=== PATIENT | female | born 1995 | race Hispanic/Latino ===

== ENCOUNTER → 2018-08-14 12:22 | Outpatient (CLI) | payer OTHER, SELFPAY ==
[2018-08-14 13:31] LABS: Add Manual Diff / Slide Review NO; Basophils Percent Auto 0.5 % (0-2); Eosinophils Percent Auto 0.7 % (2-4); Hematocrit 41.9 % (36-46); Hemoglobin 13.9 g/dL (12.0-16.0); Lymphocytes Percent Auto 17.2 % (25-40); Mean Corpuscular HGB Conc 33.3 % (30-36); Mean Corpuscular Hemoglobin 30.1 PG (26-34); Mean Corpuscular Volume 90.5 fL (80-100); Monocytes Percent Auto 5.6 % (3-14); Neutrophils Absolute Auto 10000 /uL (3000-5900); Platelet Count 285 X10^3/uL (150-400); Red Blood Cell Count 4.63 X10^6/uL (4.0-5.2); Red Cell Distribution Width 13.3 % (11.6-14.8); White Blood Cell Count 13.1 X10^3/uL (4.5-11.0)
== END ==
PROVIDERS: PCP Family Medicine; Visit Provider Family Medicine
DX: R53.83 Other fatigue (principal)
CPT/HCPCS: 36415; 84443; 85025

== ENCOUNTER → 2020-02-28 06:58 | Outpatient (CLI) | payer OTHER, SELFPAY ==
--- NOTE | 2020-02-28 06:59 | DI.US.S_ITS ---
PROCEDURE: US PELVIC COMPLETE INDICATIONS: RLQ ABDOMINAL/ ADNEXAL PAIN TECHNIQUE: Real-time scanning was performed of the pelvic organs, with image documentation. Additional endovaginal scanning was necessary due to incomplete visualization of the adnexal and endometrial structures by transabdominal scanning. COMPARISON: [facility], US, PELVIC COMPLETE, 04/19/2017, 15:53. FINDINGS: Transabdominal scanning: Limited scanning through the kidneys shows no hydronephrosis. No pathologic free abdominal or pelvic fluid. Endovaginal scanning: Uterus: Uterus is normal in size at 4.8 x 4.8 x 7.4 cm, retroverted. The endometrium measures slightly over 1.5 cm in combined thickness, at the threshold for hyperplasia at this time. There is an associated band of increased vascularity along the endometrial lining margin centrally, without polyp or other suspicious mass. Ovaries: 3.1 x 2.4 x 3.9 cm on the right with a 1.9 x 1.6 x 1.6 cm simple cyst. Left ovary measures 2.5 x 1.2 x 2.8 cm. Intact arterial and venous flow is present. IMPRESSION: The endometrial lining thickness is at the threshold for diagnosis of endometrial hyperplasia. No endometrial mass or abnormal fluid collection is seen but there is associated increased vascularity. The ovaries bilaterally show no evidence of torsion, either acutely or recently. Note is made of the 1.9 cm maximal dimension simple appearing right ovarian cyst. No abnormal free fluid found. Dictated by: Víctor Barrett M.D. on 02/28/2020 at 9:03 Approved by: Víctor Barrett M.D. on 02/28/2020 at 9:23
== END ==
PROVIDERS: PCP Family Medicine; Referring Provider Family Medicine; Visit Provider Family Medicine
DX: R10.31 Right lower quadrant pain (principal); N83.291 Other ovarian cyst, right side
CPT/HCPCS: 76830; 76856

== ENCOUNTER → 2020-05-20 11:05 | Outpatient (CLI) | payer OTHER, SELFPAY ==
[2020-05-20 11:45] LABS: Add Manual Diff / Slide Review NO; Basophils Absolute Auto 100 /uL (0-100); Basophils Percent Auto 0.7 % (0-2); Eosinophils Absolute Auto 0 /uL (0-450); Eosinophils Percent Auto 0.5 % (2-4); Hematocrit 39.7 % (36-46); Hemoglobin 13.5 g/dL (12.0-16.0); Lymphocytes Absolute Auto 2000 /uL (1100-4500); Lymphocytes Percent Auto 21.9 % (25-40); Mean Corpuscular Hemoglobin 30.9 PG (26-34); Mean Corpuscular Volume 90.9 fL (80-100); Monocytes Absolute Auto 400 /uL (0-900); Monocytes Percent Auto 4.4 % (3-14); Neutrophils Absolute Auto 6700 /uL (1500-7000); Neutrophils Percent Auto 72.5 % (50-75); Platelet Count 283 X10^3/uL (150-400); Red Blood Cell Count 4.37 X10^6/uL (4.0-5.2); Red Cell Distribution Width 12.7 % (11.6-14.8); White Blood Cell Count 9.2 X10^3/uL (4.5-11.0)
[2020-05-20 12:18] LABS: Alanine Aminotransferase 27 IU/L (<35); Albumin 4.5 g/dL (3.5-5.0); Albumin Globulin Ratio 1.4 (1.0-2.8); Alkaline Phosphatase 89 U/L (38-126); Aspartate Aminotransferase 18 IU/L (14-36); BUN Creatinine Ratio 20.3 (6-22); Bilirubin Total 0.7 mg/dL (0.2-1.3); Blood Urea Nitrogen 15 mg/dL (7-17); Carbon Dioxide 26 mmol/L (22-32); Chloride 104 mmol/L (98-107); Estimated Glomerular Filt Rate > 60.0 mL/min (>60); Globulin 3.2 g/dL (1.7-4.1); Glucose 89 mg/dL (70-100); HEMOLYSIS < 15 (0-50); Lipase 66 U/L (23-300); Potassium 4.5 mmol/L (3.4-5.1); Sodium 139 mmol/L (137-145); Total Protein 7.7 g/dL (6.3-8.2)
== END ==
PROVIDERS: PCP Family Medicine; Referring Provider Family Medicine; Visit Provider Family Medicine
DX: R10.9 Unspecified abdominal pain (principal)
CPT/HCPCS: 36415; 80053; 83690; 85025

== ENCOUNTER → 2020-05-26 09:00 | Outpatient (CLI) | payer OTHER, SELFPAY ==
--- NOTE | 2020-05-26 09:25 | DI.CT.S_ITS ---
PROCEDURE: CT ABDOMEN PELVIS W CON INDICATIONS: abdominal pain with nausea, blood stool, hx colitis TECHNIQUE: After the administration of oral and intravenous contrast, 5 mm thick sections acquired from the diaphragms to the symphysis. 5 mm thick coronal and sagittal reformats were performed. For radiation dose reduction, the following was used: automated exposure control, adjustment of mA and/or kV according to patient size. COMPARISON: [facility], CT, ABD/PELVIS W/CON (PNL), 04/16/2012, 4:38. [facility], CT, ABD/PELVIS W/CON (PNL), 10/18/2014, 13:55. FINDINGS: Image quality: Excellent. ABDOMEN: Lung bases: Lung bases are clear. Heart size is normal. Solid organs: Liver is normal in size and enhancement. Gallbladder is normal. Biliary system is non-dilated. Pancreas enhances normally. Spleen is normal in size and enhancement. No adrenal nodules. Kidneys are normal in size and enhancement, without hydronephrosis. Peritoneum and bowel: Stomach is distended. Gastric antrum may be thickened. There is mild segmental wall thickening in several loops of jejunum. Small bowel and colon loops are normal in caliber. No free fluid or air. Nodes and vessels: No retroperitoneal or mesenteric adenopathy. Aorta and inferior vena cava are normal in caliber. Miscellaneous: No ventral hernias. PELVIS: Genitourinary: Bladder wall thickness is normal. Uterus is unremarkable. There is a 1.5 cm left ovarian cyst, likely a dominant follicle. No free fluid in pelvis Miscellaneous: No inguinal hernias or adenopathy. Bones: No suspicious bony lesions. No vertebral body compression fractures. IMPRESSION: 1. Segmental thickening of jejunal loops. Differential diagnosis include inflammatory bowel disease or infectious etiology. 2. No findings to suggest colitis. 3. Distended stomach. There may be gastric antral thickening although the appearance could be caused by peristalsis. A follow-up upper GI series may be considered if clinical symptoms persist. 4. A 1.5 cm left ovarian cyst. Dictated by: Jesse Forbes M.D. on 05/26/2020 at 13:23 Approved by: Jesse Forbes M.D. on 05/26/2020 at 16:46
== END ==
PROVIDERS: PCP Family Medicine; Referring Provider Family Medicine; Visit Provider Family Medicine
DX: R10.9 Unspecified abdominal pain (principal); R11.0 Nausea; K92.1 Melena; K31.89 Other diseases of stomach and duodenum; N83.202 Unspecified ovarian cyst, left side
CPT/HCPCS: 74177; Q9967

== ENCOUNTER → 2021-12-24 11:51 | Outpatient (CLI) | payer BC, SELFPAY ==
[2021-12-24 13:00] LABS: Add Manual Diff / Slide Review NO; Basophils Absolute Auto 100 /uL (0-100); Basophils Percent Auto 0.5 % (0-2); Eosinophils Absolute Auto 100 /uL (0-450); Eosinophils Percent Auto 0.9 % (2-4); Hematocrit 41.9 % (36-46); Hemoglobin 14.3 g/dL (12.0-16.0); Lymphocytes Absolute Auto 3300 /uL (1100-4500); Lymphocytes Percent Auto 25.1 % (25-40); Mean Corpuscular HGB Conc 34.2 % (30-36); Mean Corpuscular Hemoglobin 30.8 PG (26-34); Mean Corpuscular Volume 90.2 fL (80-100); Monocytes Absolute Auto 800 /uL (0-900); Monocytes Percent Auto 5.9 % (3-14); Neutrophils Absolute Auto 8900 /uL (1500-7000); Neutrophils Percent Auto 67.6 % (50-75); Platelet Count 264 X10^3/uL (150-400); Red Blood Cell Count 4.65 X10^6/uL (4.0-5.2); Red Cell Distribution Width 13.1 % (11.6-14.8); White Blood Cell Count 13.1 X10^3/uL (4.5-11.0)
[2021-12-24 13:09] LABS: BUN Creatinine Ratio 20.3 (6-22); Blood Urea Nitrogen 15 mg/dL (7-17); Calcium 8.6 mg/dL (8.4-10.2); Carbon Dioxide 27 mmol/L (22-32); Chloride 106 mmol/L (98-107); Estimated Glomerular Filt Rate > 60.0 mL/min (>60); Glucose 97 mg/dL (70-100); HEMOLYSIS < 15 (0-50); Potassium 4.1 mmol/L (3.4-5.1); Sodium 140 mmol/L (137-145)
[2021-12-24 14:48] LABS: TSH w/ Reflex to FT4 0.73 uIU/mL (0.47-4.68)
== END ==
PROVIDERS: PCP Family Medicine; Referring Provider Family Medicine; Visit Provider Family Medicine
DX: R63.5 Abnormal weight gain (principal); R60.9 Edema, unspecified
CPT/HCPCS: 36415; 80048; 84443; 85025

== ENCOUNTER → 2022-10-05 13:11 | Outpatient (CLI) | payer BC, SELFPAY ==
[2022-10-05 14:31] LABS: Prolactin 24.5 ng/mL (3.0-18.6)
[2022-10-05 14:45] LABS: Thyroid Stimulating Hormone 0.672 uIU/mL (0.47-4.68)
[2022-10-05 19:28] LABS: Follicle Stimulating Hormone 1.15 mIU/mL; Luteinizing Hormone 4.25 mIU/mL
[2022-10-13 08:47] LABS: Percent Free Testosterone 2.52 % (0.50-2.80); Testosterone Free 0.63 ng/dL (0.10-0.85); Testosterone Total 25.1 ng/dL (10.0-55.0)
== END ==
PROVIDERS: PCP Family Medicine; Referring Provider Family Medicine; Visit Provider Family Medicine
DX: N97.9 Female infertility, unspecified (principal)
CPT/HCPCS: 36415; 83001; 83002; 84146; 84402; 84403; 84443

== ENCOUNTER → 2022-10-21 10:56 | Outpatient (CLI) | payer OTHER, MEDICAID, SELFPAY ==
[2022-10-21 13:27] LABS: Prolactin 9.8 ng/mL (3.0-18.6)
== END ==
PROVIDERS: PCP Family Medicine; Referring Provider Family Medicine; Visit Provider Family Medicine
DX: R79.89 Other specified abnormal findings of blood chemistry (principal)
CPT/HCPCS: 36415; 84146

== ENCOUNTER → 2023-01-09 11:15 | Outpatient (CLI) | payer OTHER, MEDICAID, SELFPAY ==
[2023-01-09 19:06] LABS: Prolactin 14.7 ng/mL (3.0-18.6)
== END ==
PROVIDERS: PCP Family Medicine; Referring Provider Family Medicine; Visit Provider Family Medicine
DX: R79.89 Other specified abnormal findings of blood chemistry (principal)
CPT/HCPCS: 36415; 84146

== ENCOUNTER → 2023-02-09 12:20 | Outpatient (CLI) | payer OTHER, MEDICAID, SELFPAY | PROVIDERS: PCP Family Medicine; Visit Provider Student in an Organized Health Care Education/Training Program | DX: R10.30 Lower abdominal pain, unspecified (principal) | CPT/HCPCS: 87086 ==

== ENCOUNTER → 2023-02-09 12:51 | Outpatient (CLI) | payer OTHER, MEDICAID, SELFPAY ==
[2023-02-09 13:38] LABS: HCG Quantitative /Beta subunit 27.4 mIU/mL
== END ==
PROVIDERS: PCP Family Medicine; Referring Provider Student in an Organized Health Care Education/Training Program; Visit Provider Student in an Organized Health Care Education/Training Program
DX: N92.6 Irregular menstruation, unspecified (principal); R10.2 Pelvic and perineal pain; R10.30 Lower abdominal pain, unspecified
CPT/HCPCS: 36415; 81002; 81025; 84702; 87086

== ENCOUNTER → 2023-02-13 10:30 | Outpatient (CLI) | payer OTHER, MEDICAID, SELFPAY ==
[2023-02-13 13:24] LABS: HCG Quantitative /Beta subunit 151.8 mIU/mL
== END ==
PROVIDERS: PCP Family Medicine; Referring Provider Family Medicine; Visit Provider Family Medicine
DX: N92.6 Irregular menstruation, unspecified (principal); E34.9 Endocrine disorder, unspecified; R10.2 Pelvic and perineal pain
CPT/HCPCS: 36415; 84702

== ENCOUNTER 2023-02-23 15:47 | Emergency (ER) | payer OTHER, MEDICAID, SELFPAY ==
[2023-02-23 16:11] VITALS: BP 126/63; RESP 76; TEMP 36.6; O2SAT 100; BMI 30.2
--- NOTE | 2023-02-23 16:24 | DI.US.S_ITS ---
PROCEDURE: US OB <= 14 WEEKS FETUS INDICATIONS: HEAVY BLEEDING AND CRAMPING OUTSIDE/PRIOR DATING DATA: Not applicable TECHNIQUE: Real-time scanning was performed of the fetus and maternal pelvic organs, with image documentation. Endovaginal scanning was also performed to better visualize the fetus and maternal ovaries. COMPARISON: None. FINDINGS: Maternal organs: Ovaries maternal uterus is vertically oriented on transabdominal imaging and retroverted on endovaginal imaging. The size is normal. No suspicious myometrial mass. The endometrium is normal thickness at 9 mm. No endometrial fluid collections. There is a dominant simple cyst within the right ovary measuring 2.8 x 1.6 x 2.8 cm. There is appropriate vascular flow in the right ovary. A heterogeneous, mildly hyperechoic round structure immediately adjacent to the right ovary , between the ovary and uterus. This measures 2.0 x 2.5 x 1.8 cm. There is a cystic component. Color Doppler imaging demonstrates trace, disorganized vascular flow. The left ovary appears normal. IMPRESSION: 1. No intrauterine . 2. 2.5 cm round adnexal mass between the uterus and ovary. This is suspicious for an ectopic , though classic peripheral hypervascularity is not present. Differential diagnosis includes a paraovarian cyst. 3. Dominant right ovarian follicle may be corpus luteum. 4. Close clinical follow-up and beta hCG trending is recommended. We strive to produce accurate, complete, and clear reports of imaging services. To assist us in improving patient care, this report was composed using standard report templates and voice recognition software. Therefore, it may contain abnormal punctuation, insertions and/or omissions. Occasional wrong-word or sound-alike substitutions may occur. Though we review the report and make efforts to correct it, we do recommend that the report be read carefully in proper context to recognize any text inaccuracies. Dictated by: Tanya Hurst M.D. on 02/23/2023 at 18:46 Approved by: Tanya Hurst M.D. on 02/23/2023 at 18:53
[2023-02-23 16:32] LABS: Add Manual Diff / Slide Review NO; Basophils Absolute Auto 100 /uL (0-100); Basophils Percent Auto 0.4 % (0-2); Eosinophils Absolute Auto 100 /uL (0-450); Hematocrit 39.4 % (36-46); Hemoglobin 13.4 g/dL (12.0-16.0); Lymphocytes Absolute Auto 3400 /uL (1100-4500); Lymphocytes Percent Auto 23.5 % (25-40); Mean Corpuscular Hemoglobin 30.1 PG (26-34); Mean Corpuscular Volume 88.5 fL (80-100); Monocytes Absolute Auto 1000 /uL (0-900); Monocytes Percent Auto 6.6 % (3-14); Neutrophils Absolute Auto 9900 /uL (1500-7000); Neutrophils Percent Auto 68.5 % (50-75); Platelet Count 295 X10^3/uL (150-400); Red Blood Cell Count 4.45 X10^6/uL (4.0-5.2); Red Cell Distribution Width 13.1 % (11.6-14.8); White Blood Cell Count 14.4 X10^3/uL (4.5-11.0)
[2023-02-23 17:03] LABS: HCG Quantitative /Beta subunit 641.1 mIU/mL
[2023-02-23 18:23] LABS: Appearance Urine UA CLOUDY; Bilirubin Urine UA NEGATIVE (NEGATIVE); Color Urine UA RED; Glucose Urine UA NEGATIVE (Negative); Ketones Urine UA NEGATIVE (NEGATIVE); Leukocyte Esterase Urine UA 1+ (NEGATIVE); Nitrite Urine UA NEGATIVE (Negative); Occult Blood Urine UA 3+ (Negative); Protein Urine UA 2+ (Negative); Urobilinogen Urine UA 0.2 E.U./dL (0.2)
[2023-02-23 18:43] LABS: Culture Indicated Urine Specimen Cultured; RBC Urine >100/HPF (0-5/HPF); Squamous Epithelial Cell Urine 1-5 /HPF (0-5/HPF)
[2023-02-23 18:44] LABS: Bacteria Urine Few (2-10); WBC Urine 5-10/HPF (0-5/HPF)
[2023-02-23 19:53] VITALS: BP 129/71; PULSE 81; O2SAT 98
[2023-02-23 20:00] VITALS: PULSE 73; O2SAT 99
--- NOTE | 2023-02-23 20:23 | ED.PREGNANCY ---
HPI - General Chief complaint: Vaginal Bleeding Stated complaint: Vaginal bleeding, 7 W Time Seen by Provider: 02/23/23 19:52 Source: patient Mode of arrival: Ambulatory Limitations: no limitations History of Present Illness HPI Narrative: Patient 27-year-old healthy female presenting today with known significant vaginal bleeding and lower abdominal pain. She had an initial phone intake with OB on February 20 current gestational age 6 weeks and 3 days. Presents today with increased heavy bright red vaginal bleeding and increasing pain. After waiting in the emergency department bleeding and pain have subsided. They were trying to get . She is been taking prenatals, no substance abuse Related Data Home Medications Medication Instructions Recorded Confirmed prenat.vits,tiff,[id number] 1 tab PO DAILY 02/20/23 02/20/23 Allergies Allergy/AdvReac Type Severity Reaction Status Date / Time No Known Drug Allergies Allergy Verified 02/23/23 16:14 Review of Systems Review of Systems ROS Unobtainable: All systems reviewed & are unremarkable except as noted in HPI and below Exam Initial Vital Signs Initial Vital Signs: Vital Signs Temperature 97.8 F 02/23/23 16:11 Respiratory Rate 76 H 02/23/23 16:11 Blood Pressure 126/63 02/23/23 16:11 Pulse Oximetry 100 02/23/23 16:11 Oxygen Delivery Method Room Air 02/23/23 16:11 GENERAL: Alert 27-year-old female and in no acute distress. HEENT: Head atraumatic,EOMI, pupils reactive, face symmetric, moist mucous membranes CARDIOVASCULAR: Regular rate and rhythm without murmurs, rubs or gallops. RESPIRATORY: Breath sounds equal bilaterally, no wheezes rales or rhonchi. ABDOMEN: Soft, nontender. Normoactive bowel sounds all 4 quadrants. No guarding or rebound. PELVIC: External genitalia is normal, small amount of dark bleeding, no vaginal discharge, no odor, cervical os open minimal adnexal tenderness EXTREMITIES: Normal range of motion, no clubbing or edema. Neurovascularly intact NEUROLOGICAL: Alert and oriented x4.Normal gait and speech. SKIN: Warm, dry, no laceration, no petechiae, no rashes or lesions. Course Orders Ordered: ED Orders 02/23/23 16:18 Beta HCG, Quant [HCG Quantitative /Beta subunit] Stat Complete Blood Count AUTO DIFF Stat Type and Screen Stat 02/23/23 16:24 US OB <= 14 weeks fetus Stat 02/23/23 17:48 Urinalysis and Microscopic Stat Urine Culture Stat Vital Signs Vital signs: Vital Signs - 8 hr 02/23/23 16:11 02/23/23 19:53 02/23/23 19:53 Temperature 97.8 F Pulse Rate 81 Respiratory Rate 76 H Blood Pressure 126/63 129/71 Pulse Oximetry 100 98 Oxygen Delivery Method Room Air MDM - OB/Uterine Contractions Lab Data 02/23/23 16:18 Labs: Lab Results 02/23/23 02/23/23 02/23/23 Range/Units 16:18 16:18 16:18 WBC 14.4 H (4.5-11.0) X10^3/uL RBC 4.45 (4.0-5.2) X10^6/uL Hgb 13.4 (12.0-16.0) g/dL Hct 39.4 (36-46) % MCV 88.5 (80-100) fL MCH 30.1 (26-34) PG MCHC 34.0 (30-36) % RDW 13.1 (11.6-14.8) % Plt Count 295 (150-400) X10^3/uL Neut % (Auto) 68.5 (50-75) % Lymph % (Auto) 23.5 L (25-40) % Beck[place] % (Auto) 6.6 (3-14) % Eos % (Auto) 1.0 L (2-4) % Baso % (Auto) 0.4 (0-2) % Neut # (Auto) 9900 H (3745-9641) /uL Lymph # (Auto) 3400 (1595-2199) /uL Beckham # (Auto) 1000 H (0-900) /uL Eos # (Auto) 100 (0-450) /uL Baso # (Auto) 100 (0-100) /uL HCG, Quant 641.1 mIU/mL Urine Color Urine Appearance Urine pH (4.5-8.0) Ur Specific [place] (1.000-1.035) Urine Protein (Negative) Urine Glucose (UA) (Negative) g/dL Urine Ketones (NEGATIVE) Urine Occult Blood (Negative) Urine Nitrate (Negative) Urine Bilirubin (NEGATIVE) Urine Urobilinogen (0.2) E.U./dL Ur Leukocyte Esterase (NEGATIVE) Urine RBC (0-5/HPF) Urine WBC (0-5/HPF) Ur Squamous Epith Cells (0-5/HPF) Urine Bacteria (None) Ur Culture Indicated? Blood Type A Positive Antibody Screen Negative 02/23/23 Range/Units 17:48 WBC (4.5-11.0) X10^3/uL RBC (4.0-5.2) X10^6/uL Hgb (12.0-16.0) g/dL Hct (36-46) % MCV (80-100) fL MCH (26-34) PG MCHC (30-36) % RDW (11.6-14.8) % Plt Count (150-400) X10^3/uL Neut % (Auto) (50-75) % Lymph % (Auto) (25-40) % [place] % (Auto) (3-14) % Eos % (Auto) (2-4) % Baso % (Auto) (0-2) % Neut # (Auto) (8224-9373) /uL Lymph # (Auto) (5999-8303) /uL Beckham # (Auto) (0-900) /uL Eos # (Auto) (0-450) /uL Baso # (Auto) (0-100) /uL HCG, Quant mIU/mL Urine Color Red Urine Appearance Cloudy Urine pH 7.0 (4.5-8.0) Ur Specific [place] 1.020 (1.000-1.035) Urine Protein 2+ H (Negative) Urine Glucose (UA) Negative (Negative) g/dL Urine Ketones Negative (NEGATIVE) Urine Occult Blood 3+ H (Negative) Urine Nitrate Negative (Negative) Urine Bilirubin Negative (NEGATIVE) Urine Urobilinogen 0.2 (0.2) E.U./dL Ur Leukocyte Esterase 1+ H (NEGATIVE) Urine RBC >100/hpf H (0-5/HPF) Urine WBC 5-10/hpf H (0-5/HPF) Ur Squamous Epith Cells 1-5 /hpf (0-5/HPF) Urine Bacteria Few (2-10) H (None) Ur Culture Indicated? Specimen cultured Blood Type Antibody Screen Imaging Data US - OB: Radiologist's Impression: PROCEDURE:? US OB <= 14 WEEKS FETUS ? INDICATIONS:? HEAVY BLEEDING AND CRAMPING ? OUTSIDE/PRIOR DATING DATA:? Not applicable ? TECHNIQUE:? Real-time scanning was performed of the fetus and maternal pelvic organs, with image documentation.? Endovaginal scanning was also performed to better visualize the fetus and maternal ovaries.? ? COMPARISON:? None. ? FINDINGS:? ? Maternal organs:? Ovaries maternal uterus is vertically oriented on transabdominal imaging and retroverted on endovaginal imaging.? The size is normal.? No suspicious myometrial mass.? The endometrium is normal thickness at 9 mm.? No endometrial fluid collections. ? There is a dominant simple cyst within the right ovary measuring 2.8 x 1.6 x 2.8 cm.? There is appropriate vascular flow in the right ovary. ? A heterogeneous, mildly hyperechoic round structure immediately adjacent to the right ovary , between the ovary and uterus.? This measures 2.0 x 2.5 x 1.8 cm.? There is a cystic component.? Color Doppler imaging demonstrates trace, disorganized vascular flow.? The left ovary appears normal. ? ? IMPRESSION:? ? 1. No intrauterine . ? 2. 2.5 cm round adnexal mass between the uterus and ovary.? This is suspicious for an ectopic , though classic peripheral hypervascularity is not present.? Differential diagnosis includes a paraovarian cyst. ? 3. Dominant right ovarian follicle may be corpus luteum. ? 4. Close clinical follow-up and beta hCG trending is recommended.? ? We strive to produce accurate, complete, and clear reports of imaging services. To assist us in improving patient care, this report was composed using standard report templates and voice recognition software. Therefore, it may contain abnormal punctuation, insertions and/or omissions. Occasional wrong-word or sound-alike substitutions may occur. Though we review the report and make efforts to correct it, we do recommend that the report be read carefully in proper context to recognize any text inaccuracies. ? Dictated by: Tanya Hurst M.D. on 02/23/2023 at 18:46? MDM Narrative Medical decision making narrative: Patient 19-year-old female presenting today with vaginal bleeding approximately 6 weeks . Sounds as though she had some quite heavy bleeding bright-red now pain and bleeding have subsided. HCG today is 641 Rh positive. Ultrasound today is concerning for possible ectopic . A right-sided mass is seen between ovary and uterus. There is also a right ovarian cyst. Pain on exam is minimal she has no significant adnexal tenderness no significant bleeding. 2030 Dr. Jernigan, [facility] OB, has been read ultrasound results updated patient's symptoms test results confirm concern for ectopic . Reports that ultrasound does not show any sign of fluid or rupture patient is hemodynamically stable. To be recommends outpatient follow-up. Reports that office can call patient tomorrow and check on her. He is given patient information. Also request patient be given strict return precautions for ectopic. At this time no need for surgical intervention or chemical termination. Patient updated on test results, concern for ectopic and probable miscarriage. She and are educated on strict return precautions. They anticipate Dr. Jernigan's office to call tomorrow with further instructions and follow-up Discharge Plan Departure Patient Disposition: Home Clinical Impression: Ectopic , Miscarriage Instructions: Dealing With Miscarriage, Ectopic , DI for Miscarriage Activity Restrictions/Additional Instructions: HCG today is 641 *You have been diagnosed with possible ectopic probable miscarriage *What to do: At this time there is concern for a probable ectopic and likely miscarriage. You can expect a call from Dr. Parker or Dr. Jernigan's office tomorrow before noon. They will call and check on you and continue to monitor. you need repeat hCG in 48 hours this will likely be arranged by the doctor on the phone tomorrow *Continue to take medications as directed Tylenol 1000 mg every 6 hours if needed for buxa-ll-xzftadup pain *Follow up with your primary care provider in 2-3 days or call [phone] *Return to ER if you should have increasing pain significant bright red vaginal bleeding like today more than 2 pads in 1 hour dizziness lightheadedness or any new, worsening or concerning symptoms Prescriptions: No Action prenat.vits,tiff,[id number] Tablet 1 tab PO DAILY Referrals: Sima Parker MD [Physician] - Halima Chao MD [Primary Care Provider] - Jairo Jernigan MD [Physician] - Stand Alone Forms: Patient Portal/API
[2023-02-23 20:30] VITALS: PULSE 75; O2SAT 100
== END 2023-02-23 20:51 | disposition home or self-care (01) ==
PROVIDERS: Emergency Medicine; Emergency Provider Emergency Medicine; PCP Family Medicine
DX: O00.90 Unspecified ectopic pregnancy without intrauterine pregnancy (principal); O03.9 Complete or unspecified spontaneous abortion without complication
CPT/HCPCS: 36415; 76801; 76817; 81001; 84702; 85025; 86850; 86900; 86901; 87086; 93975; 99284

== ENCOUNTER → 2023-02-25 10:49 | Outpatient (CLI) | payer OTHER, MEDICAID, SELFPAY ==
[2023-02-25 12:17] LABS: HCG Quantitative /Beta subunit 253.8 mIU/mL
== END ==
PROVIDERS: PCP Family Medicine; Referring Provider Specialist; Visit Provider Specialist
DX: O00.90 Unspecified ectopic pregnancy without intrauterine pregnancy (principal)
CPT/HCPCS: 36415; 84702

== ENCOUNTER → 2023-03-08 12:25 | Outpatient (CLI) | payer OTHER, MEDICAID, SELFPAY ==
[2023-03-08 13:24] LABS: Appearance Urine UA CLEAR; Bilirubin Urine UA NEGATIVE (NEGATIVE); Color Urine UA YELLOW; Glucose Urine UA NEGATIVE (Negative); Ketones Urine UA NEGATIVE (NEGATIVE); Leukocyte Esterase Urine UA NEGATIVE (NEGATIVE); Nitrite Urine UA NEGATIVE (Negative); Occult Blood Urine UA 2+ (Negative); Protein Urine UA NEGATIVE (Negative); Specific Gravity Urine UA 1.015 (1.000-1.035); Urobilinogen Urine UA 0.2 E.U./dL (0.2)
[2023-03-08 13:33] LABS: Bacteria Urine None Seen; Culture Indicated Urine Cult Not Indicated; RBC Urine 1-5/HPF (0-5/HPF); WBC Urine None Seen (0-5/HPF)
[2023-03-08 14:29] LABS: HCG Quantitative /Beta subunit 184.5 mIU/mL
== END ==
PROVIDERS: PCP Family Medicine; Referring Provider Family Medicine; Visit Provider Family Medicine
DX: O03.9 Complete or unspecified spontaneous abortion without complication (principal); Z3A.00 Weeks of gestation of pregnancy not specified
CPT/HCPCS: 81003; 81015; 84702; 87086

== ENCOUNTER 2023-04-03 12:00 | Emergency (ER) | payer OTHER, MEDICAID, SELFPAY ==
[2023-04-03 12:21] VITALS: BP 137/73; PULSE 63; RESP 18; TEMP 36.3; O2SAT 99; BMI 30.2
--- NOTE | 2023-04-03 12:29 | DI.US.S_ITS ---
PROCEDURE: US PELVIC COMPLETE INDICATIONS: SPONTANEOUS MISCARRIAGE 7 WEEKS AGO. STILL BLEEDING. TECHNIQUE: Real-time scanning was performed of the pelvic organs, with image documentation. Additional endovaginal scanning was necessary due to incomplete visualization of the adnexal and endometrial structures by transabdominal scanning. COMPARISON: [facility], US, US OB <= 14 WEEKS FETUS, 02/23/2023, 17:14. FINDINGS: Uterus: Uterus is dextroverted and normal in size at 8.3 x 4.4 x 3.8 cm. The myometrium is homogeneous. The endometrium measures 11 mm combined thickness. No intrauterine fluid collection or gestational sac. Ovaries: The right ovary measures 2.7 x 2.7 x 1.8 cm, with a calculated ovarian volume of 6.6 cc. The left ovary measures 3.4 x 2.9 x 1.5 cm, with a calculated ovarian volume of 7.7 cc. The ovaries have a normal sonographic appearance. In the right adnexa separate from the right ovary, there is a heterogeneous area of mixed echogenicity measuring 2.8 x 2.4 x 1.9 cm (previously measuring 2.5 x 2.0 x 1.8 cm). A small amount of adjacent hypoechoic fluid is seen in the right adnexa. Previously seen right ovarian cyst has resolved. A left ovarian complicated cyst is seen measuring up to 1.4 cm, possibly a hemorrhagic cyst. Other: No pathologic free abdominal or pelvic fluid. IMPRESSION: 1. No intrauterine . 2. Complex lesion in the right adnexa separate from the right ovary has mildly increased in size when compared to the ultrasound from 02/23/2023, and is suspicious for ectopic . Recommend correlation with clinical findings and beta HCG levels. 3. Small amount of complex fluid in the right adnexa. 4. Nonspecific mildly complicated left ovarian cyst may represent hemorrhagic cyst. Recommend follow-up ultrasound in 6-12 weeks. Concordant preliminary findings were conveyed to the emergency department physician by the biologics specialist at the time of the exam. Approved by: Rafael Barlow M.D. on 04/03/2023 at 13:50
[2023-04-03 13:41] LABS: Add Manual Diff / Slide Review NO; Basophils Absolute Auto 100 /uL (0-100); Basophils Percent Auto 0.8 % (0-2); Eosinophils Absolute Auto 300 /uL (0-450); Eosinophils Percent Auto 2.3 % (2-4); Hematocrit 37.4 % (36-46); Lymphocytes Absolute Auto 3300 /uL (1100-4500); Lymphocytes Percent Auto 29.8 % (25-40); Mean Corpuscular HGB Conc 34.7 % (30-36); Mean Corpuscular Hemoglobin 30.9 PG (26-34); Mean Corpuscular Volume 88.9 fL (80-100); Monocytes Absolute Auto 800 /uL (0-900); Monocytes Percent Auto 7.7 % (3-14); Neutrophils Absolute Auto 6500 /uL (1500-7000); Neutrophils Percent Auto 59.4 % (50-75); Platelet Count 288 X10^3/uL (150-400); Red Blood Cell Count 4.21 X10^6/uL (4.0-5.2)
[2023-04-03 13:49] LABS: BUN Creatinine Ratio 19.4 (6-22); Blood Urea Nitrogen 12 mg/dL (7-17); Calcium 8.2 mg/dL (8.4-10.2); Carbon Dioxide 24 mmol/L (22-32); Chloride 107 mmol/L (98-107); Estimated Glomerular Filt Rate > 60 mL/min (>60); Glucose 88 mg/dL (70-100); Sodium 138 mmol/L (137-145)
[2023-04-03 13:53] LABS: HEMOLYSIS 69 (0-50)
[2023-04-03 13:54] LABS: Potassium 4.8 mmol/L (3.4-5.1)
[2023-04-03 14:06] LABS: HCG Quantitative /Beta subunit 17.5 mIU/mL
[2023-04-03 14:10] LABS: RBC Urine >100/HPF (0-5/HPF)
[2023-04-03 14:11] LABS: Bacteria Urine Occasional (0-1); Culture Indicated Urine Cult Not Indicated; Squamous Epithelial Cell Urine 0-1 /HPF (0-5/HPF); WBC Urine 1-5/HPF (0-5/HPF)
--- NOTE | 2023-04-03 14:48 | ED.PREGNANCY ---
HPI - General Chief complaint: Vaginal Bleeding Stated complaint: miscarrage 7wk ago, Bleeding Time Seen by Provider: 04/03/23 14:33 Mode of arrival: Ambulatory History of Present Illness HPI Narrative: Patient here for continued vaginal bleeding. Patient is . Seen here February 23, 2023 and diagnosed with ectopic . She followed up March [address] Chao, primary care. No medications were prescribed for ectopic. Patient denies any dizziness or near-syncope or syncope. Quantitative hCG has been followed by primary care. Patient in no distress at this time. Related Data Home Medications Medication Instructions Recorded Confirmed prenat.vits,tiff,xob-bdkv-[id number] 1 tab PO DAILY 02/20/23 03/08/23 Allergies Allergy/AdvReac Type Severity Reaction Status Date / Time No Known Drug Allergies Allergy Verified 03/08/23 12:02 Review of Systems Review of Systems Narrative: GENERAL: negative chills, fatigue, malaise, fever, sweats. HEENT: negative sinus pain, ear pain, sore throat RESPIRATORY: negative dyspnea, cough CARDIOVASCULAR: negative chest pain, palpitations GASTROINTESTINAL: negative nausea, vomiting, abdominal pain : negative dysuria, frequency, hematuria, positive vaginal bleeding MUSCULOSKELETAL: negative muscle or bony pain SKIN: negative rash, skin lesions NEUROLOGIC: negative weakness, numbness ROS Unobtainable: All systems reviewed & are unremarkable except as noted in HPI and below Exam Narrative Exam Narrative: GENERAL: in no distress, not toxic not dyspneic HEAD: Normocephalic. EYES: Pupils equal round ENT: Mucous membranes moist. NECK: Trachea midline. CARDIOVASCULAR: Regular rate and rhythm without murmurs RESPIRATORY: Clear to auscultation. Breath sounds equal bilaterally. No wheezes, rales, or rhonchi. GASTROINTESTINAL: Abdomen soft, non-tender, bowel sounds are present. No peritoneal signs. EXTREMITIES: No gross deformities. BACK: No flank tenderness. NEURO: AOx4. SKIN: Warm and dry PSYCH: Not anxious, is cooperative Initial Vital Signs Initial Vital Signs: Vital Signs Temperature 97.4 F L 04/03/23 12:21 Pulse Rate 63 04/03/23 12:21 Respiratory Rate 18 04/03/23 12:21 Blood Pressure 137/73 04/03/23 12:21 Pulse Oximetry 99 04/03/23 12:21 Oxygen Delivery Method Room Air 04/03/23 12:21 Course Orders Ordered: ED Orders 04/03/23 12:29 US pelvic complete Stat 04/03/23 13:13 Urine Microscopic Stat 04/03/23 13:30 Basic Metabolic Panel Stat Complete Blood Count AUTO DIFF Stat Test [HCG Quantitative /Beta subunit] Stat Type and Screen Stat Vital Signs Vital signs: Vital Signs - 8 hr 04/03/23 12:21 Temperature 97.4 F L Pulse Rate 63 Respiratory Rate 18 Blood Pressure 137/73 Pulse Oximetry 99 Oxygen Delivery Method Room Air MDM - OB/Uterine Contractions Lab Data 04/03/23 13:30 04/03/23 13:30 Labs: Lab Results 04/03/23 04/03/23 04/03/23 Range/Units 13:13 13:30 13:30 WBC 11.0 (4.5-11.0) X10^3/uL RBC 4.21 (4.0-5.2) X10^6/uL Hgb 13.0 (12.0-16.0) g/dL Hct 37.4 (36-46) % MCV 88.9 (80-100) fL MCH 30.9 (26-34) PG MCHC 34.7 (30-36) % RDW 13.0 (11.6-14.8) % Plt Count 288 (150-400) X10^3/uL Neut % (Auto) 59.4 (50-75) % Lymph % (Auto) 29.8 (25-40) % Fountain % (Auto) 7.7 (3-14) % Eos % (Auto) 2.3 (2-4) % Baso % (Auto) 0.8 (0-2) % Neut # (Auto) 6500 (1477-4901) /uL Lymph # (Auto) 3300 (7749-6593) /uL Fountain # (Auto) 800 (0-900) /uL Eos # (Auto) 300 (0-450) /uL Baso # (Auto) 100 (0-100) /uL Sodium 138 (137-145) mmol/L Potassium 4.8 (3.4-5.1) mmol/L Chloride 107 (98-107) mmol/L Carbon Dioxide 24 (22-32) mmol/L BUN 12 (7-17) mg/dL Creatinine 0.62 (0.52-1.04) mg/dL Estimated GFR > 60 (>60) mL/min BUN/Creatinine Ratio 19.4 (6-22) Glucose 88 (70-100) mg/dL Calcium 8.2 L (8.4-10.2) mg/dL HCG, Quant mIU/mL Urine RBC >100/hpf H (0-5/HPF) Urine WBC 1-5/hpf (0-5/HPF) Ur Squamous Epith Cells 0-1 /hpf (0-5/HPF) Urine Bacteria Occasional (0-1) (None) Ur Culture Indicated? Cult not indicated Blood Type Antibody Screen 04/03/23 04/03/23 Range/Units 13:30 13:30 WBC (4.5-11.0) X10^3/uL RBC (4.0-5.2) X10^6/uL Hgb (12.0-16.0) g/dL Hct (36-46) % MCV (80-100) fL MCH (26-34) PG MCHC (30-36) % RDW (11.6-14.8) % Plt Count (150-400) X10^3/uL Neut % (Auto) (50-75) % Lymph % (Auto) (25-40) % Fountain % (Auto) (3-14) % Eos % (Auto) (2-4) % Baso % (Auto) (0-2) % Neut # (Auto) (1296-9433) /uL Lymph # (Auto) (7260-1529) /uL Fountain # (Auto) (0-900) /uL Eos # (Auto) (0-450) /uL Baso # (Auto) (0-100) /uL Sodium (137-145) mmol/L Potassium (3.4-5.1) mmol/L Chloride (98-107) mmol/L Carbon Dioxide (22-32) mmol/L BUN (7-17) mg/dL Creatinine (0.52-1.04) mg/dL Estimated GFR (>60) mL/min BUN/Creatinine Ratio (6-22) Glucose (70-100) mg/dL Calcium (8.4-10.2) mg/dL HCG, Quant 17.5 mIU/mL Urine RBC (0-5/HPF) Urine WBC (0-5/HPF) Ur Squamous Epith Cells (0-5/HPF) Urine Bacteria (None) Ur Culture Indicated? Blood Type A Positive Antibody Screen Negative Point of Care Testing Test Results Negative Urine Dip Bedside Urine Glucose Negative Bedside Urine Bilirubin - Negative Bedside Urine Ketone - Negative Urine Specific [place] 1.015 Bedside Urine Occult Blood +++ Bedside Urine pH 6.0 Bedside Urine Protein +/- 15 Bedside Urine Urobilinogen - Negative Bedside Urine Nitrite - Negative Bedside Urine Leukocytes - Negative Esterase Imaging Data US - OB: Radiologist's Impression: [address] [address] Ultrasound Report Signed Patient: Adi Alexandra MR#: [id number] : 1995 Acct:[id number] Age/Sex: 27 / F Date of Service: 04/03/23 Loc: ED Accession Number: [id number] ?? Procedure: US pelvic complete Ordering Provider: Richard Granegr MD PROCEDURE:? US PELVIC COMPLETE ? INDICATIONS:? SPONTANEOUS MISCARRIAGE 7 WEEKS AGO. STILL BLEEDING. ? TECHNIQUE:? Real-time scanning was performed of the pelvic organs, with image documentation.? Additional endovaginal scanning was necessary due to incomplete visualization of the adnexal and endometrial structures by transabdominal scanning.? ? COMPARISON:? [facility], US, US OB <= 14 WEEKS FETUS, 02/23/2023, 17:14. ? FINDINGS:? ?? Uterus:? Uterus is dextroverted and normal in size at 8.3 x 4.4 x 3.8 cm. The myometrium is homogeneous.? The endometrium measures 11 mm combined thickness.? No intrauterine fluid collection or gestational sac. ? Ovaries:? The right ovary measures 2.7 x 2.7 x 1.8 cm, with a calculated ovarian volume of 6.6 cc. The left ovary measures 3.4 x 2.9 x 1.5 cm, with a calculated ovarian volume of 7.7 cc. The ovaries have a normal sonographic appearance.? In the right adnexa separate from the right ovary, there is a heterogeneous area of mixed echogenicity measuring 2.8 x 2.4 x 1.9 cm (previously measuring 2.5 x 2.0 x 1.8 cm).? A small amount of adjacent hypoechoic fluid is seen in the right adnexa.? Previously seen right ovarian cyst has resolved.? A left ovarian complicated cyst is seen measuring up to 1.4 cm, possibly a hemorrhagic cyst. ? Other:? No pathologic free abdominal or pelvic fluid. ? IMPRESSION:? 1. No intrauterine . 2. Complex lesion in the right adnexa separate from the right ovary has mildly increased in size when compared to the ultrasound from 02/23/2023, and is suspicious for ectopic .? Recommend correlation with clinical findings and beta HCG levels.? 3. Small amount of complex fluid in the right adnexa. 4. Nonspecific mildly complicated left ovarian cyst may represent hemorrhagic cyst.? Recommend follow-up ultrasound in 6-12 weeks. ? Concordant preliminary findings were conveyed to the emergency department physician by the silk screen printer helper at the time of the exam. ? ? ? Approved by: Rafael Barlow M.D. on 04/03/2023 at 13:50? MDM Narrative Medical decision making narrative: Patient here for continued vaginal bleeding. Patient is . Seen here February 23, 2023 and diagnosed with ectopic . She followed up March [address] Chao, primary care. No medications were prescribed for ectopic. Patient denies any dizziness or near-syncope or syncope. Quantitative hCG has been followed by primary care. Patient in no distress at this time. After history and exam CBC CMP type and screen pelvic ultrasound MDM CC: Vaginal bleeding Complicating co-morbidities: Has ectopic Data collected from: Patient Medical records reviewed: ER visit here February 23, 2023, office visit follow up March 08, 2023 with primary care Differential considered: Includes but not limited to missed ectopic Exam documented above, pertinent findings include: Nontender abdomen Lab Test results independently reviewed as above. Pertinent findings: WBC 11.0 hemoglobin 13.0 BUN 12 creatinine 0.62 quantitative HCG 17.5 Imaging studies independently reviewed: Pelvic ultrasound no intrauterine . Complex lesion right adnexa separate from the right ovary has mildly increased in size compared to previous ultrasound February 23. Suspicious for ectopic . Small amount of complex fluid in the right adnexa. Consultations: 3:00 p.m.. Spoke with primary care provider dr chao, she will contact Dr. Agustin, surgical garment assembly supervisor for possible procedure 4:[address] Agustin, surgical garment assembly supervisor has seen patient and exam patient here in the department. She has plans for patient to follow up in her office this Monday 9:45 a.m. for re-evaluation and ultrasound Treatments: None required at this time Re-evaluations: Updated patient results and awaiting for primary care to contact surgical garment assembly supervisor. Patient states she is been soaking 3 or 5 pads an hour for the past 3 days. Discussion: Appropriate for discharge home. Exam and laboratory studies otherwise reassuring. Patient has been seen by surgical garment assembly supervisor Dr. Agustin. Plan for follow up in place. Diagnosis: Ectopic Discharge Plan Departure Patient Disposition: Home Clinical Impression: Ectopic without intrauterine Instructions: DI for Ectopic Activity Restrictions/Additional Instructions: Return immediately if worse if any questions or concerns. Please see Dr. Agustin at 9:45 a.m. this Monday morning. Return if any dizziness or near fainting or fainting. Prescriptions: No Action prenat.vits,tiff,[id number]-[id number]-[id number] Tablet 1 tab PO DAILY Referrals: Aminah Agustin MD [Physician] - Halima Chao MD [Primary Care Provider] - Stand Alone Forms: Patient Portal/API
[2023-04-03 16:51] VITALS: BP 113/79; PULSE 65; RESP 16; O2SAT 100
--- NOTE | 2023-04-03 17:33 | PM.CN ---
History of Present Illness Consult details Date Patient Seen: 04/03/23 Time Patient Seen: 17:34 Chief complaint: miscarrage 7wk ago-non stop bleeding, increasing Reason for consult: Surgical consult Requesting provider: Richard Granger Narrative: Patient is a 27-year-old 1 para 0 who had a spontaneous miscarriage 6 weeks ago. At that time ultrasound showed a 2.5 cm complex mass between the right ovary and the uterus. Patient has continued to bleed over the last 6 weeks. She reports having to change pad several times an hour. No significant cramping. No dizziness or lightheadedness. No abdominal or pelvic pain. Meds Home Medications and Allergies Home Medications Medication Instructions Recorded Confirmed Type prenat.vits,tiff,erc-tqpm-zmvoc 1 tab PO DAILY 02/20/23 03/08/23 History Allergies Allergy/AdvReac Type Severity Reaction Status Date / Time No Known Drug Allergies Allergy Verified 03/08/23 12:02 Exam Vital Signs (past 8 hours): - 04/03/23 12:21 04/03/23 16:51 Temperature 97.4 F L Pulse Rate 63 65 Respiratory Rate 18 16 Blood Pressure 137/73 113/79 Pulse Oximetry 99 100 Oxygen Delivery Method Room Air Room Air Oxygen Delivery Method Room Air Narrative Exam Narrative: Generally: A well-developed, well-nourished female, no acute distress Abdomen: Well-healed laparoscopy scars. No guarding or rebound tenderness. Vagina: A bivalve speculum was placed into the vagina. There was minimal blood in the vagina or coming from the cervix. Bimanual exam: A 7 week size anteverted uterus. No adnexal masses or tenderness. Objective Imaging US - abdomen: My impression: No intrauterine . 2.5 cm mass between the right ovary and uterus and is unchanged. The corpus luteal cyst on the right ovary is gone. No retained products of conception. 11 mm endometrial lining. Labs 04/03/23 13:30 04/03/23 13:30 Labs: Laboratory Results - last 24 hr 04/03/23 04/03/23 04/03/23 13:13 13:30 13:30 WBC 11.0 RBC 4.21 Hgb 13.0 Hct 37.4 MCV 88.9 MCH 30.9 MCHC 34.7 RDW 13.0 Plt Count 288 Neut % (Auto) 59.4 Lymph % (Auto) 29.8 Bond % (Auto) 7.7 Eos % (Auto) 2.3 Baso % (Auto) 0.8 Neut # (Auto) 6500 Lymph # (Auto) 3300 Bond # (Auto) 800 Eos # (Auto) 300 Baso # (Auto) 100 Sodium 138 Potassium 4.8 Chloride 107 Carbon Dioxide 24 BUN 12 Creatinine 0.62 Estimated GFR > 60 BUN/Creatinine Ratio 19.4 Glucose 88 Calcium 8.2 L HCG, Quant Urine RBC >100/hpf H Urine WBC 1-5/hpf Ur Squamous Epith Cells 0-1 /hpf Urine Bacteria Occasional (0-1) Ur Culture Indicated? Cult not indicated Blood Type Antibody Screen 04/03/23 04/03/23 13:30 13:30 WBC RBC Hgb Hct MCV MCH MCHC RDW Plt Count Neut % (Auto) Lymph % (Auto) Bond % (Auto) Eos % (Auto) Baso % (Auto) Neut # (Auto) Lymph # (Auto) Bond # (Auto) Eos # (Auto) Baso # (Auto) Sodium Potassium Chloride Carbon Dioxide BUN Creatinine Estimated GFR BUN/Creatinine Ratio Glucose Calcium HCG, Quant 17.5 Urine RBC Urine WBC Ur Squamous Epith Cells Urine Bacteria Ur Culture Indicated? Blood Type A Positive Antibody Screen Negative [facility] Medical History (Updated 04/03/23 @ 15:04 by Richard Granger MD) Acute colitis (~2018) History of dysmenorrhea (~2016) Pelvic pain (~2016) Surgical History (Updated 02/20/23 @ 11:03 by Suzanne Ordoñez, LEENA) History of laparoscopy (05/31/17) History of tonsillectomy (08/2013) [place] teeth extracted Family History (Updated 02/20/23 @ 11:04 by Suzanne Ordoñez, RN) Sister Hypertension Social History marital status: unmarried,single number of children: 0 household members: family (parents) lives independently: Yes caregiver/support person: No housing: house pets and animals: Yes (1 large dog) education level: college (some college) 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) current occupational exposures/hazards: No special ricardo needs: No travel history: over 6 months ago Safety seatbelt use: always water heater temp set < 120 deg: Yes working smoke detector in home: Yes fire extinguisher in home: Yes carbon monox detector in home: Yes firearms in home: No do you feel safe at home: Yes Tobacco & Substance Use Smoking Status: Never smoker second hand exposure: No alcohol intake: former (very occasionally when not ) substance use type: does not use Diet and Exercise during the past year weight has: increased > 10 lbs well-balanced diet: rarely or never daily servings fruits/ve-1 caffeine: No Type(s) of exercise: aerobic and weight lifting frequency: 3-4 times per week Assessment & Plan Assessment & Plan narrative: Assessment: 27-year-old 1 para 0 with continued bleeding after a spontaneous miscarriage 6 weeks ago Stable hematocrit and vital signs Complex cystic mass between the uterus and right ovary which is unchanged Plan: Follow-up in 4 days in the office for repeat ultrasound and will decide on D&C versus D&C and diagnostic laparoscopy Time Spent With Patient Time with patient: 30 to 49 minutes with 50% spent counseling/coordinating care
== END 2023-04-03 17:03 | disposition home or self-care (01) ==
PROVIDERS: Emergency Provider Emergency Medicine; PCP Family Medicine
DX: O00.90 Unspecified ectopic pregnancy without intrauterine pregnancy (principal)
CPT/HCPCS: 36415; 76830; 76856; 80048; 81003; 81015; 81025; 84702; 85025; 86850; 86900; 86901; 99284

== ENCOUNTER 2023-04-13 10:24 | Day surgery (SDC) | payer OTHER, MEDICAID, SELFPAY ==
[2023-04-11 09:37] VITALS: BMI 29.2
[2023-04-13] VITALS (9 sets, daily range): BP systolic 105–138; BP diastolic 61–91; PULSE 65–95; RESP 10–18; TEMP 36.1–36.8; O2SAT 98–100; BMI 29.2
[2023-04-13] MEDS: LACTATED RINGERS 1,000 ML 100 ML IV (10:55)
--- NOTE | 2023-04-13 13:21 | PM.GYNHP.1 ---
History of Present Illness History of Present Illness Reason for admission: vaginal bleeding and pelvic mass (Right adnexal mass) Narrative: Adi Alexandra is a 27 year old female 1 para 0 with a recent miscarriage who continues to bleed, and has a right adnexal mass which has persisted on ultrasound. She presents for a diagnostic laparoscopy with removal of right adnexal mass, and suction D&C. [facility] Medical History (Updated 04/12/23 @ 21:35 by Aminah Agustin MD) Acute colitis (~2018) H. pylori infection (2019) History of dysmenorrhea (~2016) Lymphocytic colitis Pelvic pain (~2016) Surgical History (Updated 02/20/23 @ 11:03 by Suzanne Ordoñez RN) History of laparoscopy (05/31/17) History of tonsillectomy (08/2013) [place] teeth extracted Family History (Updated 02/20/23 @ 11:04 by Suzanne Ordoñez RN) Sister Hypertension Social History marital status: unmarried,single number of children: 0 household members: family lives independently: Yes caregiver/support person: No housing: house pets and animals: Yes (1 large dog) education level: college occupational status: employed current occupational exposures/hazards: No special ricardo needs: No travel history: over 6 months ago seatbelt use: always water heater temp set < 120 deg: Yes working smoke detector in home: Yes fire extinguisher in home: Yes carbon monox detector in home: Yes firearms in home: No do you feel safe at home: Yes Smoking Status: Never smoker second hand exposure: No alcohol intake: former substance use type: does not use during the past year weight has: increased > 10 lbs well-balanced diet: rarely or never daily servings fruits/ve-1 caffeine: No Type(s) of exercise: aerobic and weight lifting frequency: 3-4 times per week Meds Home Medications and Allergies Home Medications Medication Instructions Recorded Confirmed Type prenat.vits,tiff,hue-dtxo-mknbb 1 tab PO DAILY 02/20/23 04/13/23 History Allergies Allergy/AdvReac Type Severity Reaction Status Date / Time No Known Drug Allergies Allergy Verified 04/13/23 10:29 Exam Vital Signs (past 8 hours): - 04/13/23 10:41 Temperature 97.2 F L Pulse Rate 67 Respiratory Rate 17 Blood Pressure 118/78 Pulse Oximetry 100 Oxygen Delivery Method Room Air Oxygen Delivery Method Room Air Narrative Exam Narrative: HEENT: No thyromegaly, no anterior cervical or supraclavicular lymphadenopathy. Lungs:Clear to auscultation bilaterally, no wheezes. Cardiovascular: Regular rate and rhythm, no murmurs, rubs, or gallops. Abdomen: No scars. No hepatosplenomegaly. No masses palpable. External genitalia: Normal Vagina: Normal Cervix: Nulliparous Bimanual exam: 8 Week size anteverted uterus. Mobile. Extremities: No edema Assessment & Plan Assessment & Plan narrative: Assessment: 27-year-old 1 para 0 with a right adnexal mass that has persisted on ultrasound, and a thickened endometrial lining after recent miscarriage Plan: Diagnostic laparoscopy with removal of right adnexal mass, and suction D&C The risks, benefits, and alternatives to the procedure were explained to the patient. The risks including bleeding, infection, injury to the bowel, bladder, or ureters, as well as uterine perforation. She understands these risks and agrees to proceed. A full par Q was held and consent form was signed. Time Spent With Patient Time with patient: less than 30 minutes
--- NOTE | 2023-04-13 13:23 | PM.PREOP ---
Pre-operative Note COVID-19 Criteria for continued procedure: Non-surgical alternatives not available or appropriate per current SOC Interval Note History & Physical reviewed/Exam performed by Physician: Yes Changes to H&P: No H&P completed within 30 days and has changed as indicated here:: 04/13/23
--- NOTE | 2023-04-13 14:33 | SUR.OPER ---
Lithotomy on padded OR bed, head on pillow, arms secured on padded arm boards at <90 degrees abduction. Legs secured in padded yellow fins stirrups.
[2023-04-13] MEDS: BUPIVACAINE 0.5% (PF) 30 ML, EPINEPHrine 0.15 MG INJ (14:36)
--- NOTE | 2023-04-13 15:36 | PATH_ITS ---
[facility] Accession Number: [id number] No. of containers..02 Tissue . 01 Material submitted: . PART A: fallopian tube - RIGHT FALLOPIAN TUBE PART B: product of conception - POC . 01 Diagnosis: A. Right Fallopian Tube, Salpingectomy: Ectopic (intratubal). Negative for neoplasia. . B. Uterine Contents: Proliferative endometrium. No evidence of products of conception. MRV 04/26/2023 1532 Local . 01 Electronically signed: . Sherri Broderick MD, Pathologist NPI- [id number] . 01 Gross description: . A. Received in formalin labeled with the patient's name, , and right fallopian tube, and consists of a convoluted, fimbriated fallopian tube measuring 4.2 x 2.9 x 2.1 cm. The serosa is roughened and violaceous with no cystic structures grossly identified. Sectioning reveals a dilated, stellate lumen with persaud, slightly thickened nguyen. No discrete lesions are identified, and cash applications representative sections to include one-half of the biseted fimbriae and cross-sections are submitted in cassettes A1-A2. B. Received in formalin labeled with no patient identifiers or additional designation (authorization form received), and consists of multiple persaud, spongy soft tissue fragments with a slight green tint and admixed with hemorrhagic material aggregating to 2.9 x 2.0 x 0.3 cm. No tissue is identified, and the specimen is submitted entirely in cassettes B1-B2. ([id number]) /AJIT 04/25/2023 1202 Local . 01 Pathologist provided ICD-10: O00.90 . 01 CPT . 059201, [id number] Specimen Comment: A courtesy copy of this report has been sent to [phone] Performed at: 01 [facility] [address] [facility], [place], [place] [id number] MD Chirag Lopez MD Phone: [phone]
[2023-04-13] MEDS: hydrOXYzine pamoate 25 MG CAPSULE PO (16:22)
[2023-04-13] MEDS: OXYCODONE IR 5 MG TABLET PO ×2 (16:22→17:20)
--- NOTE | 2023-04-13 21:09 | PM.GYNOP.1 ---
Operative Date/Time/Diagnoses Date of procedure: 04/13/23 Time of procedure: 15:30 Pre-op diagnosis: Right adnexal mass Retained POC Post-op diagnosis: same Procedure & Clinicians Procedure: Procedures Operation Date: 04/13/23 12:00 Actual Procedure Side Surgeon kymberly CHRISTENSEN Laparoscopy right Salpingectomy w. licing of pelvic and abdominal adhisions Aminah Agustin MD s suction D&C and chromotubation Aminah Agustin MD Indications: Continued bleeding after a miscarriage Persistent adnexal mass Surgeon: Aminah Agustin Anesthesia Type: General and Local Operative Notes Findings: 8 week size anteverted uterus 5cm right tubal mass Adhesions between right cornua of the uterus and the right tube and ovary Normal left ovary Left tube with thin adhesions to the ovary Left adnexal adhesions Right lower quadrant adhesions Liver to diaphragm adhesions Posterior uterus to bowel adhesions Endometriosis of the right adnexa Possible ectopic Left tube possibly occluded Closure Type: primary Specimen(s): left tube and products of conception Applied: catheter (in/out) Estimated blood loss (mL): 20 Blood products transfused: none Procedure in detail: Informed consent was obtained. The patient was taken to the operating room where she was placed in the dorsal supine position. After adequate general endotracheal anesthesia was achieved, she was placed in the dorsal lithotomy position, and prepped and draped in the usual sterile fashion. A time-out was performed. A bivalve speculum was placed into the vagina and the anterior lip of the cervix was grasped with a single-tooth tenaculum. The cervical os was sequentially dilated until the Zumi uterine manipulator could pass easily into the endometrial cavity. The single-tooth tenaculum was removed from the anterior lip of the cervix. The bivalve speculum was removed from the vagina. Attention was turned to the abdomen where 6 cc of 0.5% Marcaine with epinephrine were injected in the umbilical fold. A 5 mm incision was made. The Veress needle was placed into the peritoneal cavity, and its placement confirmed by aspiration and drop test. The abdominal cavity was insufflated with 2.5 L of CO2. The Veress needle was removed, and a 5 mm trocar was placed without difficulty. A second incision was made 4 cm left lateral to the umbilicus after 6 cc of 0.5% Marcaine with epinephrine were injected. A second 5 mm trocar was placed under direct visualization. The probe was used to visualize the pelvis. The right adnexa had a significantly tortuous and dilated fallopian tube. There was evidence of endometriosis in adhesions between the uterus and the fallopian tube. There were adhesions in the right lower quadrant, between the liver and diaphragm, between the bowel and posterior uterus, and between the left tube and ovary. The Endo Kassie were used to take down all of these adhesions some of them were with cut only if they were filmy adhesions, and some of the more with cautery if they were thicker. Hemostasis was achieved. A third incision was made 4 cm to the right lateral of the umbilicus after 6 cc of 0.5% Marcaine with epinephrine were injected. A third 5 mm trocar was placed under direct visualization. The right tube was grasped with an atraumatic grasper. Using the power seal the mesosalpinx was cauterized and cut all the way down to the cornua of the uterus. The tube was amputated at the cornua. The tube was placed into the posterior cul-de-sac. There was no ble to the # Hegar dilator. eding noted from the right adnexa. The pelvis was copiously irrigated with warm normal saline. There was no bleeding noted. A dilute solution of methylene blue was placed through the Zumi uterine manipulator. There was no spill from the left tube. A fourth incision was made above the pubic symphysis after 6 cc of 0.5% Marcaine with epinephrine were injected and a 12 mm incision was made. A 12 mm trocar was placed under direct visualization. The small endobag was placed through the suprapubic trocar. The left tube was placed into the bag. The trocar was removed with the bag and the tube. The pelvis was again copiously irrigated with warm normal saline. There was no bleeding noted. The instruments were removed from the abdomen. The CO2 was allowed to escape. The suprapubic incision was closed on the fascia with 0 Vicryl. All of the incisions were closed on the skin with 4-0 Monocryl in a subcuticular fashion. Steri-Strips and Allevyn dressings were placed. Attention was then turned to the vagina where the Zumi uterine manipulator was removed. A bivalve speculum was placed into the vagina. A single-tooth tenaculum was placed on the anterior lip of the cervix. The cervix was dilated to the #8 Hegar dilator. The #8 curved plastic curette passed easily into the endometrial cavity. On the first pass there was a large amount of tissue and blood. On the second and third passes there was blood only. The curette was removed from the uterus. The single-tooth tenaculum was removed from the anterior lip of the cervix. The bivalve speculum was removed from the vagina. Sponge, lap, and instrument counts were correct x2. The patient tolerated the procedure well, and was taken to PACU in stable condition. Complications: none Post-operative Condition: stable Disposition: PACU Plan for aftercare: Home after recovery
== END 2023-04-13 17:44 | disposition home or self-care (01) ==
PROVIDERS: PCP Family Medicine; Referring Provider Obstetrics & Gynecology; Visit Provider Obstetrics & Gynecology
PROC: (CPT 49320; principal; 2023-04-13 12:00)
PROC: (CPT 58120; 2023-04-13 12:00)
DX: O00.101 Right tubal pregnancy without intrauterine pregnancy (principal); N73.6 Female pelvic peritoneal adhesions (postinfective); N80.101 Endometriosis of right ovary, unspecified depth; N80.201 Endometriosis of right fallopian tube, unspecified depth
CPT/HCPCS: 58661; 59812; J0171; J1100; J1170; J1885; J2250; J2405; J3010; J3490

== ENCOUNTER → 2023-04-26 09:52 | Outpatient (CLI) | payer OTHER, MEDICAID, SELFPAY | PROVIDERS: PCP Family Medicine; Visit Provider Physician Assistant | DX: J02.9 Acute pharyngitis, unspecified (principal) | CPT/HCPCS: 87880 ==

== ENCOUNTER → 2023-05-15 12:53 | Outpatient (CLI) | payer OTHER, MEDICAID, SELFPAY ==
--- NOTE | 2023-05-15 12:54 | DI.RAD.S_ITS ---
PROCEDURE: HL HYSTEROSAPINGOGRAPHY INDICATIONS: Prior right-sided ectopic . Assess patency of left tube. COMPARISON: None. FINDINGS: Patient had a documented negative test prior to the study. Following speculum insertion, a balloon-tip catheter was inserted into the cervical canal, and secured by inflating the balloon. Contrast was then injected into the endometrial canal. Uterus: On early filling images, linear filling defects are present within the uterine cavity. Fallopian tubes: The left fallopian tube fills with contrast and appears unremarkable in caliber. Left-sided peritoneal spillage of contrast demonstrated. No right-sided spillage of contrast visualized. IMPRESSION: 1. Left fallopian tube is patent. 2. Appearance of linear filling defects within the uterine cavity raises the possibility of synechiae. Discussed with Dr. Agustin at the time of the exam. Dictated by: Rafael Pichardo M.D. on 05/15/2023 at 14:38 Approved by: Rafael Pichardo M.D. on 05/15/2023 at 14:42
--- NOTE | 2023-05-28 16:49 | P.PCN_ITS ---
Procedures Date/Time Date of procedure: 06/15/23 Time of procedure: 13:30 General Procedure description: Hysterosalpingogram After informed consent was obtained, the patient was placed on the fluoroscopy table with an overturned bedpan under her bottom. An open sided speculum was placed into the vagina. A single-tooth tenaculum was placed on the anterior lip of the cervix. The cervix was cleaned x3 with Betadine. The HSG catheter p assed easily into the endometrial cavity and the balloon was inflated with 3 cc of air. The bivalve speculum was removed from the vagina. 16 cc of Isovue-300 were injected into the uterus. The right tube had been previously removed. The contours of the uterus were fairly normal. There was spill from the left tube. The HSG catheter was removed from the uterus. The single-tooth tenaculum was removed from the anterior lip of the cervix. The overturned bedpan was removed. The patient tolerated the procedure well. Complications: none
== END ==
PROVIDERS: PCP Family Medicine; Referring Provider Obstetrics & Gynecology; Visit Provider Obstetrics & Gynecology
DX: Z09 Encounter for follow-up examination after completed treatment for conditions other than malignant neoplasm (principal); Z87.59 Personal history of other complications of pregnancy, childbirth and the puerperium; Z90.79 Acquired absence of other genital organ(s)
CPT/HCPCS: 58340; 74740

== ENCOUNTER → 2023-11-27 10:26 | Outpatient (CLI) | payer OTHER, MEDICAID, SELFPAY ==
[2023-11-27 12:15] LABS: Pregnancy Test Serum,Qual Negative (Negative)
== END ==
PROVIDERS: PCP Family Medicine; Referring Provider Family Medicine; Visit Provider Family Medicine
DX: R11.0 Nausea (principal); N92.6 Irregular menstruation, unspecified
CPT/HCPCS: 36415; 84703

== ENCOUNTER → 2024-08-16 09:29 | Outpatient (CLI) | payer OTHER, MEDICAID, SELFPAY ==
[2024-08-16 11:09] LABS: HCG Quantitative /Beta subunit 49.86 mIU/mL
== END ==
PROVIDERS: PCP Family Medicine; Referring Provider Obstetrics & Gynecology; Visit Provider Obstetrics & Gynecology
DX: Z34.81 Encounter for supervision of other normal pregnancy, first trimester (principal); N91.2 Amenorrhea, unspecified; Z87.59 Personal history of other complications of pregnancy, childbirth and the puerperium; Z3A.01 Less than 8 weeks gestation of pregnancy
CPT/HCPCS: 36415; 84702

== ENCOUNTER → 2024-08-19 09:34 | Outpatient (CLI) | payer OTHER, MEDICAID, SELFPAY ==
[2024-08-19 12:20] LABS: HCG Quantitative /Beta subunit 132.72 mIU/mL
== END ==
PROVIDERS: Specialist; PCP Family Medicine; Referring Provider Obstetrics & Gynecology; Visit Provider Obstetrics & Gynecology
DX: N92.6 Irregular menstruation, unspecified (principal)
CPT/HCPCS: 36415; 84702

== ENCOUNTER → 2024-08-21 15:06 | Outpatient (CLI) | payer OTHER, MEDICAID, SELFPAY ==
[2024-08-21 16:31] LABS: HCG Quantitative /Beta subunit 156.62 mIU/mL
== END ==
PROVIDERS: PCP Family Medicine; Referring Provider Obstetrics & Gynecology; Visit Provider Obstetrics & Gynecology
DX: O20.9 Hemorrhage in early pregnancy, unspecified (principal)
CPT/HCPCS: 36415; 84702

== ENCOUNTER → 2024-08-23 08:30 | Outpatient (CLI) | payer OTHER, MEDICAID, SELFPAY ==
[2024-08-23 10:27] LABS: HCG Quantitative /Beta subunit 266.73 mIU/mL
== END ==
PROVIDERS: PCP Family Medicine; Referring Provider Obstetrics & Gynecology; Visit Provider Obstetrics & Gynecology
DX: O20.9 Hemorrhage in early pregnancy, unspecified (principal)
CPT/HCPCS: 36415; 84702

== ENCOUNTER → 2024-08-30 09:42 | Outpatient (CLI) | payer OTHER, MEDICAID, SELFPAY ==
[2024-08-30 11:44] LABS: HCG Quantitative /Beta subunit 1619.6 mIU/mL
== END ==
PROVIDERS: PCP Family Medicine; Referring Provider Obstetrics & Gynecology; Visit Provider Obstetrics & Gynecology
DX: O20.9 Hemorrhage in early pregnancy, unspecified (principal); Z87.59 Personal history of other complications of pregnancy, childbirth and the puerperium
CPT/HCPCS: 36415; 84702

== ENCOUNTER 2024-08-30 20:59 | Emergency (ER) | payer OTHER, MEDICAID, SELFPAY ==
[2024-08-30 21:08] VITALS: BP 111/62; PULSE 79; RESP 16; TEMP 37.2; O2SAT 95; BMI 31.1
--- NOTE | 2024-08-30 21:13 | ED_ITS ---
HPI - General Chief complaint: Vaginal Bleeding Stated complaint: 6wk Preg, Bleeding Time Seen by Provider: 08/30/24 21:07 Source: patient Mode of arrival: Ambulatory Limitations: no limitations History of Present Illness HPI Narrative: 28yo (previous ectopic) presents by private vehicle for vaginal bleeding. Patient was approximately 6 weeks gestational age per last menstrual period. Due to her previous history of ectopic she has been closely followed by Dr. Agustin of OBGYN with serial HCGs. Last hCG measured today was 1619. Due to her history of ectopic patient was here today for evaluation. Blood type A positive from previous . Related Data Home Medications Medication Instructions Recorded Confirmed vitamin-ferrous sulfate tab PO 08/19/24 08/19/24 27 mg iron-folic acid 0.8 mg tablet Allergies Allergy/AdvReac Type Severity Reaction Status Date / Time No Known Drug Allergies Allergy Verified 08/19/24 08:02 Exam Initial Vital Signs Initial Vital Signs: Vital Signs Temperature 99 F 08/30/24 21:08 Pulse Rate 79 08/30/24 21:08 Respiratory Rate 16 08/30/24 21:08 Blood Pressure 111/62 08/30/24 21:08 Pulse Oximetry 95 08/30/24 21:08 Oxygen Delivery Method Room Air 08/30/24 21:08 Const: Awake, alert, no acute distress, nontoxic appearing Cardiac: regular rate, regular rhythm RESP: unlabored, speaking in complete sentences without dyspnea GI: Soft, nontender, nondistended Skin: Warm, Dry, intact, no rashes Neuro: AO x3, CN II-XII grossly intact, moves all extremities Course Orders Ordered: ED Orders 08/30/24 21:11 US pelvic complete Stat 08/30/24 21:35 CBC Auto Diff [Complete Blood Count AUTO DIFF] Stat CMP [Comprehensive Metabolic Panel] Stat Vital Signs Vital signs: Vital Signs - 8 hr 08/30/24 21:08 Temperature 99 F Pulse Rate 79 Respiratory Rate 16 Blood Pressure 111/62 Pulse Oximetry 95 Oxygen Delivery Method Room Air MDM - OB/Uterine Contractions Lab Data 08/30/24 21:35 08/30/24 21:35 Labs: Lab Results 08/30/24 Range/Units 21:35 WBC 17.5 H (4.5-11.0) X10^3/uL RBC 4.33 (4.0-5.2) X10^6/uL Hgb 12.9 (12.0-16.0) g/dL Hct 38.3 (36-46) % MCV 88.4 (80-100) fL MCH 29.8 (26-34) PG MCHC 33.7 (30-36) % RDW 12.9 (11.6-14.8) % Plt Count 335 (150-400) X10^3/uL Neut % (Auto) 68.1 (50-75) % Lymph % (Auto) 24.7 L (25-40) % [place] % (Auto) 5.8 (3-14) % Eos % (Auto) 0.9 L (2-4) % Baso % (Auto) 0.5 (0-2) % Neut # (Auto) 40526 H (1555-7833) /uL Lymph # (Auto) 4300 (9823-7550) /uL [place] # (Auto) 1000 H (0-900) /uL Eos # (Auto) 200 (0-450) /uL Baso # (Auto) 100 (0-100) /uL Sodium 136 L (137-145) mmol/L Potassium 3.9 (3.4-5.1) mmol/L Chloride 107 (98-107) mmol/L Carbon Dioxide 24 (22-32) mmol/L BUN 13 (7-17) mg/dL Creatinine 0.81 (0.52-1.04) mg/dL Estimated GFR > 60 (>60) mL/min BUN/Creatinine Ratio 16.0 (6-22) Glucose 105 H (70-100) mg/dL Calcium 8.6 (8.4-10.2) mg/dL Total Bilirubin 0.3 (0.2-1.3) mg/dL AST 36 (14-36) IU/L ALT 53 H (<35) IU/L Alkaline Phosphatase 93 (38-126) U/L Total Protein 7.5 (6.3-8.2) g/dL Albumin 4.1 (3.5-5.0) g/dL Globulin 3.4 (1.7-4.1) g/dL Albumin/Globulin Ratio 1.2 (1.0-2.8) Imaging Data US - OB: Radiologist's Impression: PROCEDURE: US PELVIC COMPLETE INDICATIONS: POSITIVE PREG; BLEEDING; HX ECTOPIC TECHNIQUE: Real-time scanning was performed of the pelvic organs, with image documentation. Additional endovaginal scanning was necessary due to incomplete visualization of the adnexal and endometrial structures by transabdominal scanning. COMPARISON: None. FINDINGS: Uterus: Uterus is retroverted and normal in size at 7.6 x 5.1 x 6.2 cm. The myometrium is homogeneous. The endometrium measures 17.1 mm combined thickness. No intrauterine is identified. Ovaries: The right ovary measures 2.2 x 3.7 x 2.1 cm, with a calculated ovarian volume of 9.0 cc. Simple cyst versus dominant follicle in the right ovary measuring 1.7 cm. The left ovary measures 2.6 x 1.2 x 2.0 cm, with a calculated ovarian volume of 3.1 cc. The ovaries have a normal sonographic appearance. Less than 12 follicles can be seen in each ovary. No adnexal masses are seen. Other: No pathologic free abdominal or pelvic fluid. IMPRESSION: No intrauterine is identified. The endometrium is thickened measuring 17 mm. Ectopic is not seen but cannot be definitively excluded and beta HCG trend and follow-up ultrasound is recommended. We strive to produce accurate, complete, and clear reports of imaging services. To assist us in improving patient care, this report was composed using standard report templates and voice recognition software. Therefore, it may contain abnormal punctuation, insertions and/or omissions. Occasional wrong-word or sound-alike substitutions may occur. Though we review the report and make efforts to correct it, we do recommend that the report be read carefully in proper context to recognize any text inaccuracies. Dictated by: Larry Hebert M.D. on 08/30/2024 at 21:38 Approved by: Larry Hebert M.D. on 08/30/2024 at 21:39 [facility] Narrative Medical decision making narrative: Well-appearing patient with vaginal bleeding in early . She has had appropriately trended hCG is but no confirmed IUP just yet. Already known blood type A positive. Basic laboratory work and ultrasound imaging ordered. Laboratory work is reviewed, no anemia, mild leukocytosis of uncertain significance. Ultrasound shows no intrauterine , thickened endometrium, normal sonographic appearance of the ovary. Unable to confirm IUP or rule out ectopic at this time. Patient and her significant other at bedside were informed of all lab and imaging findings. Recommended close OBGYN follow up. Patient has scheduled follow up in 5 days with her OBGYN, however she was unable to obtain an earlier appointment she was recommended to come back to the ER for hCG and possible repeat ultrasound. Discharge Plan Departure Patient Disposition: Home Clinical Impression: Vaginal bleeding affecting early Instructions: DI for Vaginal Bleeding During Activity Restrictions/Additional Instructions: Your blood type is A positive. Your hCG level from earlier today was 1619.6. Today your ultrasound showed a thickened lining of your uterus, but we could not see a either in the uterus or elsewhere. We unfortunately can not rule out ectopic at this time. Monitor your symptoms over the weekend. Call your OBGYN office on Monday for follow up appointment. If you are unable to obtain a follow up appointment you may come back to the emergency department for repeat hCG check and/or ultrasound as needed. Prescriptions: No Action vit-ferrous sulfat-FA 27 mg iron- 0.8 mg tablet PO Referrals: Halima Chao MD [Primary Care Provider] - Stand Alone Forms: Patient Portal/API/Survey
--- NOTE | 2024-08-30 21:44 | PC.NURSE ---
21g butterfly needle used for straight stick lab draw
[2024-08-30 21:48] LABS: Add Manual Diff / Slide Review NO; Basophils Absolute Auto 100 /uL (0-100); Basophils Percent Auto 0.5 % (0-2); Eosinophils Absolute Auto 200 /uL (0-450); Eosinophils Percent Auto 0.9 % (2-4); Hematocrit 38.3 % (36-46); Hemoglobin 12.9 g/dL (12.0-16.0); Lymphocytes Absolute Auto 4300 /uL (1100-4500); Lymphocytes Percent Auto 24.7 % (25-40); Mean Corpuscular HGB Conc 33.7 % (30-36); Mean Corpuscular Hemoglobin 29.8 PG (26-34); Mean Corpuscular Volume 88.4 fL (80-100); Monocytes Absolute Auto 1000 /uL (0-900); Monocytes Percent Auto 5.8 % (3-14); Neutrophils Absolute Auto 11900 /uL (1500-7000); Neutrophils Percent Auto 68.1 % (50-75); Platelet Count 335 X10^3/uL (150-400); Red Blood Cell Count 4.33 X10^6/uL (4.0-5.2); Red Cell Distribution Width 12.9 % (11.6-14.8); White Blood Cell Count 17.5 X10^3/uL (4.5-11.0)
[2024-08-30 22:02] LABS: Alanine Aminotransferase 53 IU/L (<35); Albumin 4.1 g/dL (3.5-5.0); Albumin Globulin Ratio 1.2 (1.0-2.8); Alkaline Phosphatase 93 U/L (38-126); Aspartate Aminotransferase 36 IU/L (14-36); Bilirubin Total 0.3 mg/dL (0.2-1.3); Blood Urea Nitrogen 13 mg/dL (7-17); Calcium 8.6 mg/dL (8.4-10.2); Carbon Dioxide 24 mmol/L (22-32); Chloride 107 mmol/L (98-107); Estimated Glomerular Filt Rate > 60 mL/min (>60); Globulin 3.4 g/dL (1.7-4.1); Glucose 105 mg/dL (70-100); HEMOLYSIS < 15 (0-50); Potassium 3.9 mmol/L (3.4-5.1); Sodium 136 mmol/L (137-145); Total Protein 7.5 g/dL (6.3-8.2)
== END 2024-08-30 22:42 | disposition home or self-care (01) ==
PROVIDERS: Emergency Provider Emergency Medicine; PCP Family Medicine
DX: O20.9 Hemorrhage in early pregnancy, unspecified (principal); Z3A.01 Less than 8 weeks gestation of pregnancy
CPT/HCPCS: 36415; 76830; 76856; 80053; 84702; 85025; 99281; 99284

== ENCOUNTER 2024-09-01 19:29 | Emergency (ER) | payer OTHER, MEDICAID, SELFPAY ==
[2024-09-01 19:33] VITALS: BP 119/80; PULSE 81; RESP 16; TEMP 36.7; O2SAT 98; BMI 31.1
--- NOTE | 2024-09-01 20:00 | ED.PREGNANCY ---
HPI - General Chief complaint: Vaginal Bleeding Stated complaint: miscarriage 40min ago Time Seen by Provider: 09/01/24 19:33 Source: patient Mode of arrival: Ambulatory History of Present Illness HPI Narrative: [id number] at approximately 6 wks gestational age presents for worsening vaginal bleeding. Hx ectopic in 2022. Patient was seen in our emergency department 2 days prior for bleeding in early . At that time hCG was 1619. Ultrasound showed thickened endometrium without IUP or suspicious adnexal lesions. This evening the patient noticed sharp suprapubic pain and worsening bleeding. She states that she was able to pass a small amount of clotted material in the toilet. Patient states she became nervous and decided to present for evaluation. Related Data Home Medications Medication Instructions Recorded Confirmed vitamin-ferrous sulfate tab PO 08/19/24 08/19/24 27 mg iron-folic acid 0.8 mg tablet Allergies Allergy/AdvReac Type Severity Reaction Status Date / Time No Known Drug Allergies Allergy Verified 09/01/24 19:33 Exam Initial Vital Signs Initial Vital Signs: Vital Signs Temperature 98.0 F 09/01/24 19:33 Pulse Rate 81 09/01/24 19:33 Respiratory Rate 16 09/01/24 19:33 Blood Pressure 119/80 09/01/24 19:33 Pulse Oximetry 98 09/01/24 19:33 Oxygen Delivery Method Room Air 09/01/24 19:33 Const: Awake, alert, no acute distress, nontoxic appearing GI: Soft, nontender, nondistended : dried blood in vaginal vault. Cervix appears closed, no active bleeding noted Skin: Warm, Dry, intact, no rashes Neuro: AO x3, CN II-XII grossly intact, moves all extremities Course Orders Ordered: ED Orders 09/01/24 20:41 Complete Blood Count AUTO DIFF Stat Comprehensive Metabolic Panel Stat HCG Quantitative /Beta subunit Stat Type and Screen Stat 09/01/24 21:30 US pelvic complete Stat Vital Signs Vital signs: Vital Signs - 8 hr 09/01/24 19:33 09/01/24 22:33 09/01/24 22:43 Temperature 98.0 F Pulse Rate 81 74 72 Respiratory Rate 16 18 18 Blood Pressure 119/80 118/63 118/63 Pulse Oximetry 98 98 98 Oxygen Delivery Method Room Air Room Air Room Air MDM - OB/Uterine Contractions Lab Data 09/01/24 20:41 09/01/24 20:41 Labs: Lab Results 09/01/24 Range/Units 20:41 WBC 15.6 H (4.5-11.0) X10^3/uL RBC 4.40 (4.0-5.2) X10^6/uL Hgb 13.3 (12.0-16.0) g/dL Hct 39.2 (36-46) % MCV 89.1 (80-100) fL MCH 30.1 (26-34) PG MCHC 33.8 (30-36) % RDW 13.1 (11.6-14.8) % Plt Count 309 (150-400) X10^3/uL Neut % (Auto) 65.2 (50-75) % Lymph % (Auto) 27.0 (25-40) % [place] % (Auto) 6.4 (3-14) % Eos % (Auto) 1.0 L (2-4) % Baso % (Auto) 0.4 (0-2) % Neut # (Auto) 84966 H (9631-4462) /uL Lymph # (Auto) 4200 (1781-7468) /uL [place] # (Auto) 1000 H (0-900) /uL Eos # (Auto) 200 (0-450) /uL Baso # (Auto) 100 (0-100) /uL Sodium 137 (137-145) mmol/L Potassium 3.9 (3.4-5.1) mmol/L Chloride 107 (98-107) mmol/L Carbon Dioxide 22 (22-32) mmol/L BUN 14 (7-17) mg/dL Creatinine 0.67 (0.52-1.04) mg/dL Estimated GFR > 60 (>60) mL/min BUN/Creatinine Ratio 20.9 (6-22) Glucose 95 (70-100) mg/dL Calcium 8.7 (8.4-10.2) mg/dL Total Bilirubin 0.3 (0.2-1.3) mg/dL AST 40 H (14-36) IU/L ALT 47 H (<35) IU/L Alkaline Phosphatase 93 (38-126) U/L Total Protein 7.3 (6.3-8.2) g/dL Albumin 4.2 (3.5-5.0) g/dL Globulin 3.1 (1.7-4.1) g/dL Albumin/Globulin Ratio 1.4 (1.0-2.8) HCG, Quant 2283.5 mIU/mL Blood Type A Positive Antibody Screen Negative Imaging Data US - OB: Radiologist's Impression: PROCEDURE: US PELVIC COMPLETE INDICATIONS: BLEEDING, HX ECTOPIC TECHNIQUE: Real-time scanning was performed of the pelvic organs, with image documentation. Additional endovaginal scanning was necessary due to incomplete visualization of the adnexal and endometrial structures by transabdominal scanning. COMPARISON: [facility], US, US PELVIC COMPLETE, 08/30/2024, 21:23. FINDINGS: Uterus: Uterus is retroverted and normal in size at 7.3 x 4.4 x 5.3 cm. The myometrium is homogeneous. The endometrium measures 10.3 mm combined thickness. No endometrial mass or fluid. No intrauterine device is identified. Ovaries: The right ovary measures 2.9 x 2.7 x 2.0 cm, with a calculated ovarian volume of 8.2 cc. The left ovary measures 2.4 x 2.4 x 1.3 cm, with a calculated ovarian volume of 3.7 cc. 1.8 cm simple cyst is seen in right ovary. Less than 12 follicles can be seen in each ovary. No adnexal masses are seen. Other: No pathologic free abdominal or pelvic fluid. IMPRESSION: 1. No endometrial mass or fluid. No intrauterine device is visualized. No discrete uterine fibroids. 2. Simple cyst in right ovary measures 1.8 cm. Otherwise unremarkable ultrasound examination of bilateral ovaries. We strive to produce accurate, complete, and clear reports of imaging services. To assist us in improving patient care, this report was composed using standard report templates and voice recognition software. Therefore, it may contain abnormal punctuation, insertions and/or omissions. Occasional wrong-word or sound-alike substitutions may occur. Though we review the report and make efforts to correct it, we do recommend that the report be read carefully in proper context to recognize any text inaccuracies. Dictated by: Clarence Richter M.D. on 09/01/2024 at 22:23 Approved by: Clarence Richter M.D. on 09/01/2024 at 22:25 MDM Narrative Medical decision making narrative: Worsening vaginal bleeding and sharp suprapubic pain in early . Repeat hCG quant ordered. Patient was blood type Rh positive. Repeat hCG 2283. Discussed case with patient's OBGYN Dr. Agustin, who recommended repeat ultrasound Repeat ultrasound shows no visualized IUP, no extra adnexal mass to suggest ectopic . Of note, patient's endometrial lining was measured at 17 mm yesterday, only measures 10 mm today. Based on this as well as patient's symptoms I highly suspect miscarriage at this time. Patient has follow up with her OBGYN in 3 days. She was counseled that she may continue to expect bleeding and cramping. ED return precautions discussed. Otherwise, patient is stable for follow up on Monday with her OBGYN. Discharge Plan Departure Patient Disposition: Home Clinical Impression: Miscarriage Instructions: DI for Miscarriage Activity Restrictions/Additional Instructions: your HCG today was 2283.5. Your ultrasound today showed no visible intrauterine or ectopic findings. Your uterus measured 17mm on 08/30, but today it only measures 10mm. Based on these results it is very possible that you are having a miscarriage. Please follow up with your OBGYN as scheduled on Monday. Prescriptions: No Action vit-ferrous sulfat-FA 27 mg iron- 0.8 mg tablet PO Referrals: Halima Chao MD [Primary Care Provider] - Stand Alone Forms: Patient Portal/API/Survey, Work Release Note
[2024-09-01 20:53] LABS: Add Manual Diff / Slide Review NO; Basophils Absolute Auto 100 /uL (0-100); Basophils Percent Auto 0.4 % (0-2); Eosinophils Absolute Auto 200 /uL (0-450); Hematocrit 39.2 % (36-46); Hemoglobin 13.3 g/dL (12.0-16.0); Lymphocytes Absolute Auto 4200 /uL (1100-4500); Mean Corpuscular HGB Conc 33.8 % (30-36); Mean Corpuscular Hemoglobin 30.1 PG (26-34); Mean Corpuscular Volume 89.1 fL (80-100); Monocytes Absolute Auto 1000 /uL (0-900); Monocytes Percent Auto 6.4 % (3-14); Neutrophils Absolute Auto 10200 /uL (1500-7000); Neutrophils Percent Auto 65.2 % (50-75); Platelet Count 309 X10^3/uL (150-400); Red Cell Distribution Width 13.1 % (11.6-14.8); White Blood Cell Count 15.6 X10^3/uL (4.5-11.0)
[2024-09-01 21:02] LABS: Alanine Aminotransferase 47 IU/L (<35); Albumin 4.2 g/dL (3.5-5.0); Albumin Globulin Ratio 1.4 (1.0-2.8); Alkaline Phosphatase 93 U/L (38-126); Aspartate Aminotransferase 40 IU/L (14-36); BUN Creatinine Ratio 20.9 (6-22); Bilirubin Total 0.3 mg/dL (0.2-1.3); Blood Urea Nitrogen 14 mg/dL (7-17); Calcium 8.7 mg/dL (8.4-10.2); Carbon Dioxide 22 mmol/L (22-32); Chloride 107 mmol/L (98-107); Estimated Glomerular Filt Rate > 60 mL/min (>60); Globulin 3.1 g/dL (1.7-4.1); Glucose 95 mg/dL (70-100); HEMOLYSIS < 15 (0-50); Potassium 3.9 mmol/L (3.4-5.1); Sodium 137 mmol/L (137-145); Total Protein 7.3 g/dL (6.3-8.2)
[2024-09-01 21:19] LABS: HCG Quantitative /Beta subunit 2283.5 mIU/mL
--- NOTE | 2024-09-01 21:30 | DI.US.S_ITS ---
PROCEDURE: US PELVIC COMPLETE INDICATIONS: BLEEDING, HX ECTOPIC TECHNIQUE: Real-time scanning was performed of the pelvic organs, with image documentation. Additional endovaginal scanning was necessary due to incomplete visualization of the adnexal and endometrial structures by transabdominal scanning. COMPARISON: [facility], US, US PELVIC COMPLETE, 08/30/2024, 21:23. FINDINGS: Uterus: Uterus is retroverted and normal in size at 7.3 x 4.4 x 5.3 cm. The myometrium is homogeneous. The endometrium measures 10.3 mm combined thickness. No endometrial mass or fluid. No intrauterine device is identified. Ovaries: The right ovary measures 2.9 x 2.7 x 2.0 cm, with a calculated ovarian volume of 8.2 cc. The left ovary measures 2.4 x 2.4 x 1.3 cm, with a calculated ovarian volume of 3.7 cc. 1.8 cm simple cyst is seen in right ovary. Less than 12 follicles can be seen in each ovary. No adnexal masses are seen. Other: No pathologic free abdominal or pelvic fluid. IMPRESSION: 1. No endometrial mass or fluid. No intrauterine device is visualized. No discrete uterine fibroids. 2. Simple cyst in right ovary measures 1.8 cm. Otherwise unremarkable ultrasound examination of bilateral ovaries. We strive to produce accurate, complete, and clear reports of imaging services. To assist us in improving patient care, this report was composed using standard report templates and voice recognition software. Therefore, it may contain abnormal punctuation, insertions and/or omissions. Occasional wrong-word or sound-alike substitutions may occur. Though we review the report and make efforts to correct it, we do recommend that the report be read carefully in proper context to recognize any text inaccuracies. Dictated by: Clarence Richter M.D. on 09/01/2024 at 22:23 Approved by: Clarence Richter M.D. on 09/01/2024 at 22:25
[2024-09-01 22:33] VITALS: BP 118/63; PULSE 74; RESP 18; O2SAT 98
[2024-09-01 22:43] VITALS: BP 118/63; PULSE 72; RESP 18; O2SAT 98
== END 2024-09-01 22:48 | disposition home or self-care (01) ==
PROVIDERS: Emergency Provider Emergency Medicine; PCP Family Medicine
DX: O03.9 Complete or unspecified spontaneous abortion without complication (principal)
CPT/HCPCS: 36415; 76830; 76856; 80053; 84702; 85025; 86850; 86900; 86901; 99281; 99284

== ENCOUNTER → 2024-09-03 11:52 | Outpatient (CLI) | payer OTHER, MEDICAID, SELFPAY ==
[2024-09-03 14:02] LABS: HCG Quantitative /Beta subunit 3340.7 mIU/mL
== END ==
PROVIDERS: PCP Family Medicine; Referring Provider Obstetrics & Gynecology; Visit Provider Obstetrics & Gynecology
DX: O03.9 Complete or unspecified spontaneous abortion without complication (principal)
CPT/HCPCS: 36415; 84702

== ENCOUNTER → 2024-09-09 09:07 | Outpatient (CLI) | payer OTHER, MEDICAID, SELFPAY ==
[2024-09-09 11:08] LABS: HCG Quantitative /Beta subunit 4548.3 mIU/mL
== END ==
PROVIDERS: PCP Family Medicine; Referring Provider Obstetrics & Gynecology; Visit Provider Obstetrics & Gynecology
DX: Z32.00 Encounter for pregnancy test, result unknown (principal)
CPT/HCPCS: 36415; 84702

== ENCOUNTER → 2024-09-13 10:50 | Outpatient (CLI) | payer OTHER, MEDICAID, SELFPAY ==
[2024-09-13 12:22] LABS: HCG Quantitative /Beta subunit 2427.2 mIU/mL
== END ==
LOC: LAB 10:51
PROVIDERS: PCP Family Medicine; Referring Provider Obstetrics & Gynecology; Visit Provider Obstetrics & Gynecology
DX: N91.2 Amenorrhea, unspecified (principal)
CPT/HCPCS: 36415; 84702

== ENCOUNTER → 2024-09-18 09:47 | Outpatient (CLI) | payer OTHER, MEDICAID, SELFPAY ==
[2024-09-18 10:55] LABS: HCG Quantitative /Beta subunit 1474.7 mIU/mL
== END ==
PROVIDERS: PCP Family Medicine; Referring Provider Obstetrics & Gynecology; Visit Provider Obstetrics & Gynecology
DX: O20.9 Hemorrhage in early pregnancy, unspecified (principal)
CPT/HCPCS: 36415; 84702

== ENCOUNTER 2024-09-20 23:32 | Observation (INO) | payer OTHER, MEDICAID, SELFPAY ==
[2024-09-20 23:49] VITALS: BP 118/75; PULSE 58; RESP 18; TEMP 36.3; O2SAT 100; BMI 31.1
--- NOTE | 2024-09-20 23:59 | ED.ABDPAIN ---
HPI - Abdominal Pain General Chief Complaint: Abdominal Pain Stated Complaint: left abd pain Time Seen by Provider: 09/20/24 23:59 Source: patient Mode of arrival: Ambulatory History of Present Illness HPI narrative: Patient is a 28-year-old female past medical history of right ectopic with removal presents to the emergency department for left lower quadrant abdominal pain ongoing persistent proximally 1 hour. Patient states that she had a miscarriage about 2 weeks ago was given methotrexate, states that she did follow up with her OBGYN 2 days ago had ultrasound and was told everything was ?okay.. States that she still has been having some mild cramping pain but got worse an hour ago therefore decided come into the ED for further evaluation treatment. She follows with Dr. Agustin of OBGYN. She states that she is still having some mild bright red bleeding vaginally but states that this is not new, states that she was having some vaginal bleeding when she saw OBGYN few days ago. Denies any blood thinners no trauma no falls Related Data Home Medications Medication Instructions Recorded Confirmed vitamin-ferrous sulfate tab PO 08/19/24 09/18/24 27 mg iron-folic acid 0.8 mg tablet Allergies Allergy/AdvReac Type Severity Reaction Status Date / Time No Known Drug Allergies Allergy Verified 09/18/24 10:29 Review of Systems Review of Systems Narrative: General: Denies fever, chills, weight loss HEENT: Denies headache, eye drainage, eye irritation, head trauma, sore throat, voice change Cardiovascular: Denies any chest pain, palpitations, shortness of breath, tachycardia Respiratory: Denies any shortness of breath, cough, wheeze, stridor GI/: Positive left lower quadrant abdominal pain/pelvic, nausea, vomiting, diarrhea, bright red blood per rectum, melanotic stools, urinary frequency, urinary retention, dysuria, hematuria MSK: Denies any joint pain, muscle pains, swelling Skin: Denies any rashes, lesions, discoloration Neuro: Denies any headache, lightheadedness, dizziness, fainting, weakness Psych: Denies SI/HI Patient History Medical History (Updated 09/21/24 @ 02:03 by Tirso Germain DO) Ovarian cyst History of ectopic Lymphocytic colitis H. pylori infection (2019) Acute colitis (~2018) History of dysmenorrhea (~2016) Pelvic pain (~2017) Surgical History History of salpingectomy [place] teeth extracted History of laparoscopy (05/31/17) History of tonsillectomy (08/2013) Family History Sister Hypertension Social History marital status: unmarried,living together number of children: 0 household members: significant other and family lives independently: Yes caregiver/support person: No housing: house pets and animals: Yes (dogs) education level: high school occupational status: employed and student current occupational exposures/hazards: No special ricardo needs: No travel history: over 6 months ago seatbelt use: always water heater temp set < 120 deg: Yes working smoke detector in home: Yes fire extinguisher in home: Yes carbon monox detector in home: Yes firearms in home: No do you feel safe at home: Yes Smoking Status: Never smoker second hand exposure: No alcohol intake: former substance use type: does not use during the past year weight has: remained stable well-balanced diet: about half the time daily servings fruits/ve-4 caffeine: No Type(s) of exercise: running frequency: 3-4 times per week Smoking Status: Never smoker alcohol intake frequency: 0-2 drinks per day Exam Narrative Exam Narrative: General: Cooperative, comfortable, well-developed, not in acute distress HEENT: Normocephalic, atraumatic, PERRLA, normal sclera, eyelids normal, Neck: Active full range of motion, atraumatic Chest: Normal to inspection, negative crepitus, no overlying erythema ecchymosis Respiratory: Normal respiratory effort, not in acute respiratory distress, clear to auscultation bilaterally negative cough, wheeze, tachypnea, rhonchi, rales Cardiology: Regular rate rhythm negative gallop, murmur, rubs GI/: Normal to inspection, soft, nonrigid, tender to palpation to the lower abdomen worse to the left lower quadrant, exam deferred MSK: Full range of active range of motion of all 4 extremities, atraumatic Skin: No rashes lesions noted Neuro: Alert awake oriented x3, moves all 4 extremities spontaneously, cranial nerves intact, able to answer all questions appropriately follows commands appropriately Psych: Cooperative, negative suicidal or homicidal ideations Initial Vital Signs Initial Vital Signs: Vital Signs Temperature 97.4 F L 09/20/24 23:49 Pulse Rate 58 L 09/20/24 23:49 Respiratory Rate 18 09/20/24 23:49 Blood Pressure 118/75 09/20/24 23:49 Pulse Oximetry 100 09/20/24 23:49 Oxygen Delivery Method Room Air 09/20/24 23:49 Course Orders Ordered: ED Orders 09/21/24 00:02 CT abdomen pelvis w con Stat US pelvic complete Stat 09/21/24 00:17 Beta HCG, Quant [HCG Quantitative /Beta subunit] Stat Complete Blood Count AUTO DIFF Stat Comprehensive Metabolic Panel Stat Lipase Stat PT [Prothrombin Time INR] Stat PTT Partial Thromboplastin [place] Stat 09/21/24 01:20 Urine Microscopic Stat 09/21/24 01:43 Type and Screen Stat 09/21/24 01:55 Hemoglobin and Hematocrit Stat Discontinued Medications Ketorolac Tromethamine (Ketorolac 30 Mg/Ml Vial) 15 mg IM NOW ONE Stop: 09/21/24 00:05 Last Admin: 09/21/24 00:22 Dose: 15 mg Documented By: KOKO Morphine Sulfate (Morphine 4 Mg/Ml Inj) 4 mg IV NOW ONE Stop: 09/21/24 01:41 Last Admin: 09/21/24 01:52 Dose: 4 mg Documented By: PENNY Vital Signs Vital signs: Vital Signs - 8 hr 09/20/24 23:49 Temperature 97.4 F L Pulse Rate 58 L Respiratory Rate 18 Blood Pressure 118/75 Pulse Oximetry 100 Oxygen Delivery Method Room Air MDM - Abdominal Pain Differential Diagnosis Differential diagnosis: Likely abdominal pain, constipation, diverticulitis, small bowel obstruction and other (Ruptured ectopic) Lab Data 09/21/24 01:55 09/21/24 00:17 Labs: Lab Results 09/21/24 09/21/24 09/21/24 Range/Units 00:17 01:20 01:55 WBC 12.4 H (4.5-11.0) X10^3/uL RBC 4.28 (4.0-5.2) X10^6/uL Hgb 12.7 12.5 (12.0-16.0) g/dL Hct 38.0 36.7 (36-46) % MCV 88.8 (80-100) fL MCH 29.8 (26-34) PG MCHC 33.5 (30-36) % RDW 13.1 (11.6-14.8) % Plt Count 304 (150-400) X10^3/uL Neut % (Auto) 59.0 (50-75) % Lymph % (Auto) 31.3 (25-40) % [place] % (Auto) 7.7 (3-14) % Eos % (Auto) 1.6 L (2-4) % Baso % (Auto) 0.4 (0-2) % Neut # (Auto) 7300 H (9254-4432) /uL Lymph # (Auto) 3900 (1500-9589) /uL [place] # (Auto) 1000 H (0-900) /uL Eos # (Auto) 200 (0-450) /uL Baso # (Auto) 100 (0-100) /uL PT 11.6 (9.4-12.5) SECONDS INR 1.0 (0.9-1.3) APTT 40 H (25.1-36.5) SECONDS Sodium 135 L (137-145) mmol/L Potassium 3.8 (3.4-5.1) mmol/L Chloride 106 (98-107) mmol/L Carbon Dioxide 25 (22-32) mmol/L BUN 16 (7-17) mg/dL Creatinine 1.01 (0.52-1.04) mg/dL Estimated GFR > 60 (>60) mL/min BUN/Creatinine Ratio 15.8 (6-22) Glucose 106 H (70-100) mg/dL Calcium 8.7 (8.4-10.2) mg/dL Total Bilirubin 0.3 (0.2-1.3) mg/dL AST 47 H (14-36) IU/L ALT 60 H (<35) IU/L Alkaline Phosphatase 101 (38-126) U/L Total Protein 7.6 (6.3-8.2) g/dL Albumin 4.1 (3.5-5.0) g/dL Globulin 3.5 (1.7-4.1) g/dL Albumin/Globulin Ratio 1.2 (1.0-2.8) Lipase 82 (23-300) U/L Urine RBC 5-10/hpf H (0-5/HPF) Urine WBC None seen (0-5/HPF) Ur Squamous Epith Cells 0-1 /hpf (0-5/HPF) Urine Bacteria None seen (None) Ur Culture Indicated? Cult not indicated Vol Urine Centrifuged 10ml (spun) Point of care testing: Urine Dip Bedside Urine Glucose Negative Bedside Urine Bilirubin - Negative Bedside Urine Ketone - Negative Urine Specific [place] 1.01 Bedside Urine Occult Blood +++ Bedside Urine pH 6.5 Bedside Urine Protein - Negative Bedside Urine Urobilinogen - Negative Bedside Urine Nitrite - Negative Bedside Urine Leukocytes - Negative Esterase Imaging Data US - SITE SAFETY COORDINATOR: Radiologist's Impression: [address] [address] Ultrasound Report Signed Patient: Adi Alexandra MR#: [id number] : 1995 Acct:[id number] Age/Sex: 28 / F Date of Service: 09/21/24 Loc: ED Accession Number: [id number] Procedure: US pelvic complete Ordering Provider: Tirso Germain D.O. PROCEDURE: US PELVIC COMPLETE INDICATIONS: Pt with recent ectopic , hx of rt tubal removal TECHNIQUE: Real-time scanning was performed of the pelvic organs, with image documentation. Additional endovaginal scanning was necessary due to incomplete visualization of the adnexal and endometrial structures by transabdominal scanning. COMPARISON: [facility], , US PELVIC COMPLETE, 09/01/2024, 22:00. FINDINGS: Uterus: Uterus is retroverted and normal in size at 8.2 x 4.6 x 4.4 cm. The myometrium is heterogeneous. The endometrium is ill-defined and not well seen. Ovaries: The right ovary is not seen. The left ovary measures 3.4 x 1.4 x 3.5 cm, with a calculated ovarian volume of 9.0 cc. Complex mass adjacent/lateral to the left ovary measuring 1.9 x 2.1 x 1.5 cm. Other: Small fluid/blood within the pelvis. IMPRESSION: Complex mass is seen adjacent to the left ovary measuring 2.1 cm. Ectopic cannot be excluded. Recommend gynecology consultation and continued beta HCG trend and short-term follow-up ultrasound. Small fluid/blood within the pelvis. CT scan - abdomen/pelvis: Radiologist's Impression: [address] [address] [address] Scan Report Signed Patient: Adi Alexandra MR#: [id number] : 1995 Acct:[id number] Age/Sex: 28 / F Date of Service: 09/21/24 Loc: ED Accession Number: [id number] Procedure: CT abdomen pelvis w con Ordering Provider: Tirso Germain D.O. PROCEDURE: CT ABDOMEN PELVIS W CON INDICATIONS: Left lower quadrant abdominal pain, recent miscarriage TECHNIQUE: After the administration of intravenous contrast, axial sections acquired from the lung bases to the pubic symphysis. Coronal and sagittal reformats were performed. For radiation dose reduction, the following was used: automated exposure control, adjustment of mA and/or kV according to patient size. COMPARISON: [facility], CT, CT ABDOMEN PELVIS W CON, 05/26/2020, 9:54. FINDINGS: Image quality: Diagnostic. Lower Chest: No significant findings. ABDOMEN: Liver: No solid mass. Gallbladder: No radiopaque gallstones or wall thickening. Biliary ducts: No biliary dilation. Pancreas: No ductal dilation. Spleen: Size is within normal limits. Adrenal Glands: No adrenal nodules. Kidneys and Ureters: No hydronephrosis. No solid mass. No complex renal cystic lesion which requires follow up. Stomach and Bowel: Normal colonic caliber, without significant wall thickening. Peritoneum: Small free fluid within the pelvis. No free air. Ventral Wall: No significant ventral hernia. Abdominal Nodes: No retroperitoneal or mesenteric adenopathy by size criteria. Vessels: Aorta and inferior vena cava are normal in size. PELVIS: Pelvic Organs: No definite abnormality is seen by CT. Bladder: No bladder wall thickening, accounting for underdistention. Pelvic Nodes: No enlarged lymph nodes. Miscellaneous: No inguinal hernias are seen. Bones: No aggressive osseous abnormality. IMPRESSION: Small free fluid is seen within the pelvis of uncertain etiology. Given recent miscarriage, pelvic ultrasound is recommended for further evaluation. MDM Narrative Medical decision making narrative: Patient is a 28-year-old female past medical history of right ectopic with removal presents to the emergency department for left lower quadrant abdominal pain ongoing persistent proximally 1 hour. Patient states that she had a miscarriage about 2 weeks ago was given methotrexate, states that she did follow up with her OBGYN 2 days ago had ultrasound and was told everything was ?okay.. States that she still has been having some mild cramping pain but got worse an hour ago therefore decided come into the ED for further evaluation treatment. She follows with Dr. Agustin of OBGYN. CT scan showing free fluid in the pelvis, ultrasound showing significant amount of free fluid in the pelvis concerning for ruptured ectopic given patient's history. 0138: Case was discussed with OBGYN Dr. Malone, who states reach out to who is the person on-call for any top cleaner surgeries 0148: Discussed case with Dr. de leon, who states that she will come into the ED for evaluation, is requesting updated beta hCG, will order repeat H&H, coags and type and screen 0230: Patient was evaluated by Dr. De Leon, who evaluated the patient and states patient should be brought to the OR, patient to be admitted by OBGYN. The patient's management plan was discussed Dr. De Leon, who agrees to admit the patient to their service and assumes care of this patient at this time. Full admission orders will be placed by the primary team. Discharge Plan Departure Patient Disposition: Admitted to Surgery Clinical Impression: Ruptured ectopic Prescriptions: No Action vit-ferrous sulfat-FA 27 mg iron- 0.8 mg tablet PO
--- NOTE | 2024-09-21 | PATH_ITS ---
[facility] Accession Number: [id number] No. of containers..01 Tissue . 01 Material submitted: . fallopian tube - LEFT FALLOPIAN TUBE . 01 Diagnosis: LEFT FALLOPIAN TUBE, SALPINGECTOMY: Histologic features of ectopic gestation. Fallopian tube with a full thickness defect / perforation of the wall and complete cross sections with no significant cytologic atypia. Outside consultation to exclude molar gestation ([facility]); results will be reported as an addendum. . . . [facility] 09/25/2024 1606 Local . 01 Electronically signed: . Amie Crum MD, Pathologist NPI- [id number] . 01 Gross description: . Received in formalin with two patient identifiers and left fallopian tube, is a fimbriated fallopian tube, 6.7 cm in length and ranging from 0.6 to 2.1 cm in diameter. The serosa is violaceous with a presumed full thickness defect, 0.4 cm in greatest dimension. A well-circumscribed pale persaud nodule is identified on the serosa, 0.3 x 0.2 cm. Sectioning reveals a dilated lumen filled with hemorrhagic material with no tissue grossly identified. Additionally in the container are multiple fragments of hemorrhagic material aggregating to 6.2 x 4.7 x 2.5 cm, as well as a persaud, spongy tissue fragment, 1.5 x 1.1 x 0.3 cm. Community Case Manager sections are submitted as follows: . A1: Cross section with persaud serosal nodule. A2-A3: Additional cross sections and one-half of bisected fimbriae. A4: Separate hemorrhagic material and spongy fragment. ([id number]) /MRV 09/24/2024 1755 Local . 01 Pathologist provided ICD-10: O00.102 . 01 CPT . 705542 Performed at: [address] [facility], [place], [place] [id number] MD Chirag Lopez MD Phone: [phone]
--- NOTE | 2024-09-21 00:02 | DI.US.S_ITS ---
PROCEDURE: US PELVIC COMPLETE INDICATIONS: Pt with recent ectopic , hx of rt tubal removal TECHNIQUE: Real-time scanning was performed of the pelvic organs, with image documentation. Additional endovaginal scanning was necessary due to incomplete visualization of the adnexal and endometrial structures by transabdominal scanning. COMPARISON: [facility], US, US PELVIC COMPLETE, 09/01/2024, 22:00. FINDINGS: Uterus: Uterus is retroverted and normal in size at 8.2 x 4.6 x 4.4 cm. The myometrium is heterogeneous. The endometrium is ill-defined and not well seen. Ovaries: The right ovary is not seen. The left ovary measures 3.4 x 1.4 x 3.5 cm, with a calculated ovarian volume of 9.0 cc. Complex mass adjacent/lateral to the left ovary measuring 1.9 x 2.1 x 1.5 cm. Other: Small fluid/blood within the pelvis. IMPRESSION: Complex mass is seen adjacent to the left ovary measuring 2.1 cm. Ectopic cannot be excluded. Recommend gynecology consultation and continued beta HCG trend and short-term follow-up ultrasound. Small fluid/blood within the pelvis. We strive to produce accurate, complete, and clear reports of imaging services. To assist us in improving patient care, this report was composed using standard report templates and voice recognition software. Therefore, it may contain abnormal punctuation, insertions and/or omissions. Occasional wrong-word or sound-alike substitutions may occur. Though we review the report and make efforts to correct it, we do recommend that the report be read carefully in proper context to recognize any text inaccuracies. Dictated by: Larry Hebert M.D. on 09/21/2024 at 1:52 Approved by: Larry Hebert M.D. on 09/21/2024 at 1:54
--- NOTE | 2024-09-21 00:02 | DI.CT.S_ITS ---
PROCEDURE: CT ABDOMEN PELVIS W CON INDICATIONS: Left lower quadrant abdominal pain, recent miscarriage TECHNIQUE: After the administration of intravenous contrast, axial sections acquired from the lung bases to the pubic symphysis. Coronal and sagittal reformats were performed. For radiation dose reduction, the following was used: automated exposure control, adjustment of mA and/or kV according to patient size. COMPARISON: [facility], CT, CT ABDOMEN PELVIS W CON, 05/26/2020, 9:54. FINDINGS: Image quality: Diagnostic. Lower Chest: No significant findings. ABDOMEN: Liver: No solid mass. Gallbladder: No radiopaque gallstones or wall thickening. Biliary ducts: No biliary dilation. Pancreas: No ductal dilation. Spleen: Size is within normal limits. Adrenal Glands: No adrenal nodules. Kidneys and Ureters: No hydronephrosis. No solid mass. No complex renal cystic lesion which requires follow up. Stomach and Bowel: Normal colonic caliber, without significant wall thickening. Peritoneum: Small free fluid within the pelvis. No free air. Ventral Wall: No significant ventral hernia. Abdominal Nodes: No retroperitoneal or mesenteric adenopathy by size criteria. Vessels: Aorta and inferior vena cava are normal in size. PELVIS: Pelvic Organs: No definite abnormality is seen by CT. Bladder: No bladder wall thickening, accounting for underdistention. Pelvic Nodes: No enlarged lymph nodes. Miscellaneous: No inguinal hernias are seen. Bones: No aggressive osseous abnormality. IMPRESSION: Small free fluid is seen within the pelvis of uncertain etiology. Given recent miscarriage, pelvic ultrasound is recommended for further evaluation. Dictated by: Larry Hebert M.D. on 09/21/2024 at 0:48 Approved by: Larry Hebert M.D. on 09/21/2024 at 0:51
[2024-09-21] MEDS: KETOROLAC 30 MG/ML VIAL 15 MG IM (00:22)
[2024-09-21 00:40] LABS: Add Manual Diff / Slide Review NO; Basophils Absolute Auto 100 /uL (0-100); Basophils Percent Auto 0.4 % (0-2); Eosinophils Absolute Auto 200 /uL (0-450); Eosinophils Percent Auto 1.6 % (2-4); Hemoglobin 12.7 g/dL (12.0-16.0); Lymphocytes Absolute Auto 3900 /uL (1100-4500); Lymphocytes Percent Auto 31.3 % (25-40); Mean Corpuscular HGB Conc 33.5 % (30-36); Mean Corpuscular Hemoglobin 29.8 PG (26-34); Mean Corpuscular Volume 88.8 fL (80-100); Monocytes Absolute Auto 1000 /uL (0-900); Monocytes Percent Auto 7.7 % (3-14); Neutrophils Absolute Auto 7300 /uL (1500-7000); Platelet Count 304 X10^3/uL (150-400); Red Blood Cell Count 4.28 X10^6/uL (4.0-5.2); Red Cell Distribution Width 13.1 % (11.6-14.8); White Blood Cell Count 12.4 X10^3/uL (4.5-11.0)
[2024-09-21 00:55] LABS: Alanine Aminotransferase 60 IU/L (<35); Albumin 4.1 g/dL (3.5-5.0); Albumin Globulin Ratio 1.2 (1.0-2.8); Alkaline Phosphatase 101 U/L (38-126); Aspartate Aminotransferase 47 IU/L (14-36); BUN Creatinine Ratio 15.8 (6-22); Bilirubin Total 0.3 mg/dL (0.2-1.3); Blood Urea Nitrogen 16 mg/dL (7-17); Calcium 8.7 mg/dL (8.4-10.2); Carbon Dioxide 25 mmol/L (22-32); Chloride 106 mmol/L (98-107); Estimated Glomerular Filt Rate > 60 mL/min (>60); Globulin 3.5 g/dL (1.7-4.1); Glucose 106 mg/dL (70-100); HEMOLYSIS < 15 (0-50); Lipase 82 U/L (23-300); Potassium 3.8 mmol/L (3.4-5.1); Sodium 135 mmol/L (137-145); Total Protein 7.6 g/dL (6.3-8.2)
[2024-09-21] MEDS: MORPHINE 4 MG/ML INJ IV (01:52)
[2024-09-21 02:06] LABS: Bacteria Urine None Seen; Culture Indicated Urine Cult Not Indicated; RBC Urine 5-10/HPF (0-5/HPF); Squamous Epithelial Cell Urine 0-1 /HPF (0-5/HPF); Urine Volume 10mL (spun); WBC Urine None Seen (0-5/HPF)
[2024-09-21 02:08] LABS: Hematocrit 36.7 % (36-46); Hemoglobin 12.5 g/dL (12.0-16.0)
[2024-09-21 02:13] LABS: Prothrombin Time 11.6 SECONDS (9.4-12.5)
[2024-09-21 02:16] LABS: PTT Partial Thromboplastin Tim 40 SECONDS (25.1-36.5)
--- NOTE | 2024-09-21 02:23 | PM.GYNHP.1 ---
History of Present Illness History of Present Illness Reason for admission: vaginal bleeding and pelvic pain Narrative: Adi Alexandra is a 28 year old s/p IM-MTX for management of PUL 09/04/24 ([place]) with personal h/o prior ectopic who presents to ED with c/o sudden onset progressively severe LLQ pain since approximately 2330 09/20/24. Pt underwent evaluation in ED with pelvic US as well as CT abd/pelvis that showed evidence of LLQ hemoperitoneum without visualization of IUP, complex 2cm mass adjacent to LAYLA consistent with ectopic . LEARNING SUPPORT AIDE consulted for further evaluation secondary to presentation. On my interview patient is resting comfortably in supine position however holding herself still, +increase in pain when shifting in bed. Understandably tearful regarding discussion of need for repeat emergent laparoscopy for further evaluation. States last PO (solid and fluid) approximately 1830 on 09/20/24. Clinical course prior to today's encounter notable for h/o prior diagnostic laparoscopy with SALVADOR and ovarian cystectomy (age 20, Dr. Parker), prior R ectopic necessitating laparoscopic salpingectomy (managed with MTX, salpingectomy secondary to persistent structural damage thereafter). Pt had HSG prior to current conception which demonstrated L tubal patency. She had a +UPT 08/14/24 with new OB intake performed via telehealth 08/19/24. Due to her h/o prior ectopic serial bHCG were followed with noted inappropriate rise. Patient was seen in ED 08/30/24 after developing vaginal bleeding with lower abdominal cramping. At time of subsequent f/u in office 09/04 bHCG had risen to 3300 without evidence of IUP and patient received outpatient IM MTX. Her last office encounter was 09/18/24 at which time it was noted her bHCG was trending down and US remained wnl per patient report. Patient states she has continued to have variable vaginal bleeding throughout. Denies dysuria, sensation of rectal pressure. [facility] 08/19 - 132 08/21 - 156 08/23 - 266 08/30 - 1619 09/01 - 3 09/03 - 0 09/04 - MTX administered (single dose protocol) 09/08 - 454 (day 4) 09/13 - 242 (day 8) 09/18 - 815, presumed rupture [facility] Medical History (Updated 09/21/24 @ 02:03 by Tirso Germain DO) Ovarian cyst History of ectopic Lymphocytic colitis H. pylori infection (2019) Acute colitis (~2018) History of dysmenorrhea (~2016) Pelvic pain (~2016) Surgical History History of salpingectomy [place] teeth extracted History of laparoscopy (05/31/17) History of tonsillectomy (08/2013) Family History Sister Hypertension Social History marital status: unmarried,living together number of children: 0 household members: significant other and family lives independently: Yes caregiver/support person: No housing: house pets and animals: Yes (dogs) education level: high school occupational status: employed and student current occupational exposures/hazards: No special ricardo needs: No travel history: over 6 months ago seatbelt use: always water heater temp set < 120 deg: Yes working smoke detector in home: Yes fire extinguisher in home: Yes carbon monox detector in home: Yes firearms in home: No do you feel safe at home: Yes Smoking Status: Never smoker second hand exposure: No alcohol intake: former substance use type: does not use during the past year weight has: remained stable well-balanced diet: about half the time daily servings fruits/ve-4 caffeine: No Type(s) of exercise: running frequency: 3-4 times per week Meds Home Medications and Allergies Home Medications Medication Instructions Recorded Confirmed Type ibuprofen 800 mg tablet 800 mg PO Q8H PRN pain #14 tabs 09/21/24 Rx oxycodone 5 mg capsule 5 mg PO Q6H PRN pain #10 caps 09/21/24 Rx sennosides 8.6 mg tablet (Senna 8.6 mg PO BEDTIME PRN constipation 09/21/24 Rx Laxative) #10 tabs Allergies Allergy/AdvReac Type Severity Reaction Status Date / Time No Known Drug Allergies Allergy Verified 09/18/24 10:29 Review of Systems Review of Systems ROS: Yes All systems reviewed with the patient and are negative except as otherwise documented Exam Vital Signs (past 8 hours): - 09/20/24 23:49 Temperature 97.4 F L Pulse Rate 58 L Respiratory Rate 18 Blood Pressure 118/75 Pulse Oximetry 100 Oxygen Delivery Method Room Air Oxygen Delivery Method Room Air Const General: cooperative, well developed, No acute distress and anxious Nutritional Appearance: overweight Orientation: alert, awake and oriented x3 Limitations: mental status not altered Resp Effort & Inspection: normal respiratory effort and able to speak in complete sentences Cardio Pulses: normal peripheral pulses GI Palpation: soft and tender Other: diffusely tender bilateral lower quadrants, L>R, +rebound prior laparoscopic trocar sites noted (infraumbilical, bilateral lower quadrant) Other: deferred, +active vaginal bleeding per patient aris to menses Skin General: no rashes or lesions noted Neuro General: patient alert, patient awake and patient oriented x3 Extrem General: normal to inspection Psych Mental Status: mental status grossly normal Judgment: judgment good Objective Imaging CT scan - abdomen: My impression: fluid within lower pelvis consistent with hemoperitoneum Radiologist's impression: Small free fluid is seen within the pelvis of uncertain etiology. Given recent miscarriage, pelvic ultrasound is recommended for further evaluation. US - abdomen: My impression: pelvic US - no evidence of IUP, layering within CDS c/w free fluid vs hemoperitoneum complex adnexal mass c/w ectopic adjacent to adnexae unable to determine degree of tubal involvement Radiologist's impression: Complex mass is seen adjacent to the left ovary measuring 2.1 cm. Ectopic cannot be excluded. Recommend gynecology consultation and continued beta HCG trend and short-term follow-up ultrasound. Small fluid/blood within the pelvis. Labs 09/21/24 01:55 09/21/24 00:17 Labs: Laboratory Results - last 24 hr 09/21/24 09/21/24 09/21/24 00:17 01:20 01:55 WBC 12.4 H RBC 4.28 Hgb 12.7 12.5 Hct 38.0 36.7 MCV 88.8 MCH 29.8 MCHC 33.5 RDW 13.1 Plt Count 304 Neut % (Auto) 59.0 Lymph % (Auto) 31.3 [place] % (Auto) 7.7 Eos % (Auto) 1.6 L Baso % (Auto) 0.4 Neut # (Auto) 7300 H Lymph # (Auto) 3900 [place] # (Auto) 1000 H Eos # (Auto) 200 Baso # (Auto) 100 PT 11.6 INR 1.0 APTT 40 H Sodium 135 L Potassium 3.8 Chloride 106 Carbon Dioxide 25 BUN 16 Creatinine 1.01 Estimated GFR > 60 BUN/Creatinine Ratio 15.8 Glucose 106 H Calcium 8.7 Total Bilirubin 0.3 AST 47 H ALT 60 H Alkaline Phosphatase 101 Total Protein 7.6 Albumin 4.1 Globulin 3.5 Albumin/Globulin Ratio 1.2 Lipase 82 Urine RBC 5-10/hpf H Urine WBC None seen Ur Squamous Epith Cells 0-1 /hpf Urine Bacteria None seen Ur Culture Indicated? Cult not indicated Vol Urine Centrifuged 10ml (spun) Assessment & Plan Assessment and plan (1) Ruptured ectopic : Status: Acute Plan 28yo post-treatment day 17 s/p IM MTX for medical management of of unknown location/presumed ectopic, now with CT/US findings consistent with rupture ectopic mass, symptomatic hemoperitoneum with indication for urgent laparoscopy/surgical management Patient counseled on recommendation for emergent surgical intervention with diagnostic laparoscopy. We discussed at length that all reasonable attempts to preserve the remaining fallopian tube would be taken, however high chance of need for salpingectomy versus salpingo-oophorectomy versus oophorectomy pending exact location of and rupture. Patient verbalized understanding and in agreement with plan of care. We additionally discussed higher than normal risk of complication secondary to h/o prior intra-abdominal procedure, specifically risk to adjacent structures in sabianist of significant intra-abdominal/pelvic adhesive disease. Patient verbalized understanding and desires to proceed. OR team activated per RN supervisor dials strict NPO VSS/hemodynamically stable, continue to monitor dispo: to OR Time-Based Coding :: [TOTAL MINUTES] spent with patient and on the chart (including review of chart, obtaining history, exam, reviewing outside data, placing orders, documenting exam and treatment plan, and counseling patient) on [DATE].
--- NOTE | 2024-09-21 03:14 | PM.PREOP ---
Pre-operative Note Interval Note History & Physical reviewed/Exam performed by Physician: Yes Changes to H&P: No H&P completed within 30 days and has changed as indicated here:: 09/21/24 ASA Class (for procedural sedation): II
[2024-09-21 03:20] VITALS: BP 112/66; PULSE 74; RESP 12; TEMP 36.8; O2SAT 99
[2024-09-21 03:21] VITALS: BMI 31.1
[2024-09-21] MEDS: ACETAMINOPHEN IV 1,000 MG/100 ML VIAL 400 MG IV (03:23)
[2024-09-21] MEDS: LACTATED RINGERS 1,000 ML 42 ML IV (03:28)
--- NOTE | 2024-09-21 03:54 | SUR.OPER ---
Lithotomy on padded OR bed, head on pillow, arms secured tucked with gel pads. Legs secured in padded yellow fins stirrups.
[2024-09-21] MEDS: BUPIVACAINE 0.25% (PF) 30 ML, EPINEPHrine 0.15 MG INJ (03:59)
[2024-09-21 04:46] VITALS: BP 113/74; PULSE 111; RESP 17; TEMP 36.1; O2SAT 100
--- NOTE | 2024-09-21 04:49 | P.OP_ITS ---
Operative Date/Time/Diagnoses Date of procedure: 09/21/24 Time of procedure: 04:49 Pre-op diagnosis: hemoperitoneum, suspected ruptured L ectopic Post-op diagnosis: same Procedure & Clinicians Procedure: diagnostic laparoscopy, L salpingectomy, dilation and curettage Same procedure as scheduled: Yes Indications: pelvic pain, of unknown location, abnormal pelvic imaging Surgeon: Mandi Barker Click Yes if Unassisted: Yes Anesthesia Type: General Operative Notes Findings: Grossly dilated L fallopian tube, dense adhesion of entire L adnexal complex to posterior broad ligament/posterior uterus filmy L pelvic sidewall adhesions of colon noted diffuse flame lesions + windows within CDS c/w endometriosis Closure Type: primary Specimen(s): other (L fallopian tube ) Estimated Blood Loss (mL): 10 Procedure in detail: The patient was taken to the operating room, placed on the operating table in the supine position and intubated with ETT.? The patient was then placed in the lithotomy position with her legs in Kevin stirrups.? The patient was then examined under anesthesia with the above findings, then prepped and draped in a sterile fashion.?Patient was straight catheterized with return of approximately 100cc clear urine.? Time out was performed. A sterile speculum was inserted into the vagina.? The anterior cervix was grasped with single tooth tenaculum and under gentle traction sounded to 8cm. A Zumi manipulator was placed for uterine manipulation. The speculum was removed. Gloves changed and attention was then turned to the abdominal portion of the case. A 5mm incision was made infraumbilically and abdominal entry was achieved under direct visualization using the 5mm VisaPort trocar.? Abdomen was insufflated to 15mmHg.? A left lateral 5-mm port was placed in a similar manner under direct visualization followed by additional 5mm port at [place] point on the left.? The uterus was anteverted and abdominal survey was noted with findings as noted above. On close inspection the left fallopian tube was noted to be significantly compromised without ability to preserve [place] anatomy. The Powerseal was used to dissect the left fallopian tube away from the mesosalpinx.? The utero-ovarian artery was burned and ligated and the specimen was amputated at the level of the cornua. The infraumbilical incision was extended to 1cm and the trocar was exchanged for the 11mm to allow for introduction of the endocatch bag. The Endocatch bag was introduced and the specimen was placed in it entirety within under direct visualization. The bag was closed and brought to the level of the incision. Insufflation was released and the specimen was removed without difficulty. Insufflation was then restored and all wound beds were inspected and noted to be hemostatic. The abdomen was copiously suction irrigated. Pneumoperitoneum was discontinued and vented. The fascia of the infraumbilical incision was closed using 0-0 vicryl on a UR6 needle; skin of all incisions was reapproximated to 4-0 monocryl followed by dermabond. Attention was then returned to the vagina. The speculum was replaced into the vagina. The zumi manipulator was removed without difficulty. The anterior cervix was grasped using a single tooth tenaculum. The cervix was serially dilated using forde dilators to allow for passage of small sharp curette. The curette was introduced and the uterine cavity was very gentle curetted. The tenaculum was removed and hemostasis noted at insertion sites. The speculum was removed. ? Complications: none Post-operative Condition: stable Disposition: PACU Plan for aftercare: dc to home, routine postop f/u in office 2wks
[2024-09-21 04:51] VITALS: BP 108/65; PULSE 104; RESP 18; O2SAT 99
[2024-09-21 04:56] VITALS: BP 118/68; PULSE 104; RESP 17; O2SAT 100
[2024-09-21 05:01] VITALS: BP 119/86; PULSE 104; RESP 10; O2SAT 100
[2024-09-21] MEDS: OXYCODONE IR 5 MG TABLET PO ×2 (05:03→05:31)
== END 2024-09-21 08:21 | disposition home or self-care (01) ==
LOC: ED 09-21 02:33 → AC 09-21 02:52
PROVIDERS: Admitting Provider Obstetrics & Gynecology; Emergency Provider Student in an Organized Health Care Education/Training Program; PCP Family Medicine; Referring Provider Student in an Organized Health Care Education/Training Program; Visit Provider Obstetrics & Gynecology
PROC: (CPT 49320; principal; 2024-09-21 03:00)
DX: K66.1 Hemoperitoneum (principal); N73.6 Female pelvic peritoneal adhesions (postinfective)
CPT/HCPCS: 58661; 58120; 36415; 74177; 76830; 76856; 80053; 81003; 81015; 83690; 84702; 85014; 85018; 85025; 85610; 85730; 86850; 86900; 86901; 96372; 96374; 99284; G0378; J0134; J0171; J0330; J1100; J1885; J2270; J2405; J2704; J3010; Q9967

== ENCOUNTER → 2025-08-01 08:39 | Outpatient (CLI) | payer OTHER, SELFPAY ==
[2025-08-01 09:59] LABS: Add Manual Diff / Slide Review NO; Hematocrit 40.7 % (36-46); Hemoglobin 13.8 g/dL (12.0-16.0); Lymphocytes Absolute Auto 2500 /uL (1100-4500); Mean Corpuscular HGB Conc 33.8 % (30-36); Mean Corpuscular Hemoglobin 29.7 PG (26-34); Mean Corpuscular Volume 87.9 fL (80-100); Platelet Count 334 X10^3/uL (150-400)
[2025-08-01 10:15] LABS: Hemoglobin A1C% w Est Avg Glu 5.0 % (4.0-6.0)
[2025-08-01 10:34] LABS: Alanine Aminotransferase 60 IU/L (<35); Albumin 4.4 g/dL (3.5-5.0); Albumin Globulin Ratio 1.4 (1.0-2.8); Alkaline Phosphatase 106 U/L (38-126); Blood Urea Nitrogen 16 mg/dL (7-17); Calcium 8.9 mg/dL (8.4-10.2); Carbon Dioxide 23 mmol/L (22-32); Chloride 106 mmol/L (98-107); Estimated Glomerular Filt Rate > 60 mL/min (>60); Globulin 3.1 g/dL (1.7-4.1); Glucose 101 mg/dL (70-99); HEMOLYSIS < 15 (0-50); Potassium 4.6 mmol/L (3.4-5.1); Sodium 139 mmol/L (137-145); Total Protein 7.5 g/dL (6.3-8.2)
[2025-08-01 10:48] LABS: Free T3, Triiodothyronine Free 4.97 pg/mL (2.77-5.27); Free T4, Direct Thyroxine 1.15 ng/dL (0.78-2.19)
[2025-08-01 11:01] LABS: Thyroid Stimulating Hormone 1.06 uIU/mL (0.47-4.68)
== END ==
PROVIDERS: PCP Family Medicine; Referring Provider Family Medicine; Visit Provider Family Medicine
DX: R23.2 Flushing (principal)
CPT/HCPCS: 36415; 80053; 83036; 84439; 84443; 84481; 85025

== ENCOUNTER → 2025-08-07 08:39 | Outpatient (CLI) | payer OTHER, SELFPAY ==
--- NOTE | 2025-08-07 08:40 | DI.US.S_ITS ---
PROCEDURE: US ABDOMEN LIMITED INDICATIONS: elevated liver enzymes TECHNIQUE: Real-time scanning was performed of the abdominal and retroperitoneal organs, with image documentation. COMPARISON: [facility], CT, CT ABDOMEN PELVIS W CON, 09/21/2024, 0:30. FINDINGS: Liver: Liver is normal in size and increased in echogenicity. Limited views of the liver due to overlying bowel gas. Gallbladder: No gallstones. No wall thickening. No pericholecystic edema. Negative sonographic Shaver's sign. Biliary ducts: Intrahepatic bile ducts are non-dilated. Common bile duct is not well seen. Pancreas: Visualized portions of the pancreas are sonographically normal. Body and tail not well seen. Miscellaneous: No free abdominal fluid. IMPRESSION: Liver is increased in echogenicity, most consistent with hepatic steatosis. Limited exam secondary to overlying bowel gas. Dictated by: Larry Hebert M.D. on 08/07/2025 at 10:31 Approved by: Larry Hebert M.D. on 08/07/2025 at 10:36
== END ==
LOC: US 08:39
PROVIDERS: PCP Family Medicine; Referring Provider Family Medicine; Visit Provider Family Medicine
DX: R74.8 Abnormal levels of other serum enzymes (principal)
CPT/HCPCS: 76705